=== PATIENT | male | born 1945 | race Caucasian/White ===

== ENCOUNTER 2018-04-29 14:42 | Inpatient (IN) | payer BC ==
[~2018-04-29] VITALS: Ht 182.9 cm; Wt 106.6 kg
--- NOTE | 2018-04-29 16:00 | RAD ---
EXAM: Chest, single view. HISTORY: Weakness. COMPARISON: None. FINDINGS: A frontal view the chest is obtained. There is no infiltrate, pleural effusion or pneumothorax. The heart is normal in size. There has been an incidental distal left clavicular resection. IMPRESSION: No acute pulmonary finding. Electronically signed by: Courtney Burt MD (04/29/2018 3:57 PM) [facility]
[2018-04-29 16:19] LABS: BASO % 1 % (0-3); EOS # 0.1 x10^3/uL (0.0-0.7); EOS % 1 % (0-3); HEMATOCRIT 40.8 % (39.0-53.0); HEMOGLOBIN 14.2 g/dL (13.0-17.5); LYMPH # 1.4 x10^3/uL (1.0-4.8); LYMPH % 23 % (24-48); MEAN CORPUSCULAR HEMOGLOBIN 31 pg (25-35); MEAN CORPUSCULAR HGB CONC 35 g/dL (31-37); MEAN CORPUSCULAR VOLUME 90 fL (79-100); MONO # 0.5 x10^3/uL (0.0-1.1); MONO % 8 % (0-9); NEUT # 4.1 x10^3uL (1.8-7.7); NEUT % 68 % (31-73); PLATELET COUNT 159 x10^3/uL (140-400); RED BLOOD COUNT 4.53 x10^6/uL (4.30-5.70); RED CELL DISTRIBUTION WIDTH 13.6 % (11.5-14.5); WHITE BLOOD COUNT 6.1 x10^3/uL (4.0-11.0)
[2018-04-29 16:29] LABS: CALCIUM 9.9 mg/dL (8.5-10.1); CREATININE 1.1 mg/dL (0.7-1.3); GFR 65.6; POTASSIUM 3.4 mmol/L (3.5-5.1)
[2018-04-29 16:34] LABS: ALBUMIN 3.9 g/dL (3.4-5.0); ALBUMIN/GLOBULIN RATIO 1.1 (1.0-1.7); TOTAL BILIRUBIN 0.4 mg/dL (0.2-1.0); TOTAL PROTEIN 7.4 g/dL (6.4-8.2)
--- NOTE | 2018-04-29 16:54 | PHYS DOC ---
Past Medical History Past Medical History: Arthritis, Diabetes-Type II, Hypertension, Other Additional Past Medical Histor: bph,neuropathy,back surgery,no control of right foot,neck injury Past Surgical History: Other Additional Past Surgical Histo: back,right tib/fib, testicular surgery for nonca tumor,tonsils Alcohol Use: Rarely Drug Use: None Adult General Chief Complaint Chief Complaint: DIZZY/LIGHT HEADED HPI HPI Patient is a 72 year old male who presents with dizziness and near syncope that happened approximately 11:00 this morning. The patient states that he felt like it came on suddenly. He checked his blood sugars approximately 1:00 this afternoon and they were running in the 140's. He has recently started a ketosis diet. He denies chest pain or shortness of air. He denies nausea, diarrhea or vomiting. He denies any history of coronary disease or intervention. He states that he does have hypertension and does have an annual stress test. Review of Systems Review of Systems Constitutional: Denies fever or chills [] Eyes: Denies change in visual acuity, redness, or eye pain [] HENT: Denies nasal congestion or sore throat [] Respiratory: Denies cough or shortness of breath [] Cardiovascular: No additional information not addressed in HPI [] GI: Denies abdominal pain, nausea, vomiting, bloody stools or diarrhea [] : Denies dysuria or hematuria [] Musculoskeletal: Denies back pain or joint pain [] Integument: Denies rash or skin lesions [] Neurologic: See history of present illness Endocrine: Denies polyuria or polydipsia [] All other systems were reviewed and found to be within normal limits, except as documented in this note. Allergies Allergies Allergies Coded Allergies Type Severity Reaction Last Updated Verified nitrofurazone Allergy Severe anaphalyxis 04/29/18 Yes Physical Exam Physical Exam Constitutional: Well developed, well nourished, no acute distress, non-toxic appearance. [] HENT: Normocephalic, atraumatic, bilateral external ears normal, oropharynx moist, no oral exudates, nose normal. [] Eyes: PERRLA, EOMI, conjunctiva normal, no discharge. [] Neck: Normal range of motion, no tenderness, supple, no stridor. [] Cardiovascular:Heart rate irregular rhythm, no murmur [] Lungs & Thorax: Bilateral breath sounds clear to auscultation [] Abdomen: Bowel sounds normal, soft, no tenderness, no masses, no pulsatile masses. [] Skin: Warm, dry, no erythema, no rash. [] Back: No tenderness, no CVA tenderness. [] Extremities: No tenderness, no cyanosis, no clubbing, ROM intact, no edema. [] Neurologic: Alert and oriented X 3, normal motor function, normal sensory function, no focal deficits noted. [] Psychologic: Affect normal, judgement normal, mood normal. [] Current Patient Data Vital Signs Vital Signs Date Time Temp Pulse Resp B/P (MAP) Pulse Ox O2 Delivery O2 Flow Rate FiO2 04/29/18 16:53 90 18 96 04/29/18 15:30 98.1 131/70 (90) Room Air 98.1 Lab Values Laboratory Tests Test 04/29/18 16:00 White Blood Count 6.1 x10^3/uL (4.0-11.0) Red Blood Count 4.53 x10^6/uL (4.30-5.70) Hemoglobin 14.2 g/dL (13.0-17.5) Hematocrit 40.8 % (39.0-53.0) Mean Corpuscular Volume 90 fL (79-100) Mean Corpuscular Hemoglobin 31 pg (25-35) Mean Corpuscular Hemoglobin Concent 35 g/dL (31-37) Red Cell Distribution Width 13.6 % (11.5-14.5) Platelet Count 159 x10^3/uL (140-400) Neutrophils (%) (Auto) 68 % (31-73) Lymphocytes (%) (Auto) 23 % (24-48) L Monocytes (%) (Auto) 8 % (0-9) Eosinophils (%) (Auto) 1 % (0-3) Basophils (%) (Auto) 1 % (0-3) Neutrophils # (Auto) 4.1 x10^3uL (1.8-7.7) Lymphocytes # (Auto) 1.4 x10^3/uL (1.0-4.8) Monocytes # (Auto) 0.5 x10^3/uL (0.0-1.1) Eosinophils # (Auto) 0.1 x10^3/uL (0.0-0.7) Basophils # (Auto) 0.0 x10^3/uL (0.0-0.2) Sodium Level 136 mmol/L (136-145) Potassium Level 3.4 mmol/L (3.5-5.1) L Chloride Level 97 mmol/L (98-107) L Carbon Dioxide Level 26 mmol/L (21-32) Anion Gap 13 (6-14) Blood Urea Nitrogen 24 mg/dL (8-26) Creatinine 1.1 mg/dL (0.7-1.3) Estimated GFR (Cockcroft-Gault) 65.6 BUN/Creatinine Ratio 22 (6-20) H Glucose Level 115 mg/dL (70-99) H Calcium Level 9.9 mg/dL (8.5-10.1) Total Bilirubin 0.4 mg/dL (0.2-1.0) Aspartate Amino Transferase (AST) 17 U/L (15-37) Alanine Aminotransferase (ALT) 37 U/L (16-63) Alkaline Phosphatase 59 U/L (46-116) Total Protein 7.4 g/dL (6.4-8.2) Albumin 3.9 g/dL (3.4-5.0) Albumin/Globulin Ratio 1.1 (1.0-1.7) Laboratory Tests 04/29/18 16:00 Laboratory Tests 04/29/18 16:00 EKG EKG []The patient's EKG shows an irregular rhythm with no P waves. the patient is currently in A. fib with a heart rate of 88 bpm. Radiology/Procedures Radiology/Procedures []PATIENT: HERIBERTO MCCANN IACCOUNT: [id number]#: [id number] : 1945 LOCATION: ER AGE: 72 SEX: M EXAM STATUS: REG ER ORD. PHYSICIAN: ELEANOR MARQUEZ APRN REASON: dizzy PROCEDURE: CHEST AP ONLY EXAM: Chest, single view. HISTORY: Weakness. COMPARISON: None. FINDINGS: A frontal view the chest is obtained. There is no infiltrate, pleural effusion or pneumothorax. The heart is normal in size. There has been an incidental distal left clavicular resection. IMPRESSION: No acute pulmonary finding. Electronically signed by: Courtney Fournier MD (04/29/2018 3:57 PM) [place] [id number] DICTATED and SIGNED BY: COURTNEY FOURNIER MD DATE: 04/29/18 5663 Course & Med Decision Making Course & Med Decision Making Pertinent Labs and Imaging studies reviewed. (See chart for details) []The patient refused a head CT. The patient also refused urinalysis. The patient states that he has been hospitalized before when hospitals just tried to order inappropriate has to gain money. I explained to him that these were all valid test given his symptoms. He declined them anyway. The patient has agreed to be admitted to Dr. Rodgers's service and to have a cardiology consult for his new diagnosis of A. fib. Dragon Disclaimer Dragon Disclaimer This electronic medical record was generated, in whole or in part, using a voice recognition dictation system. Departure Departure Impression: Primary Impression: A-fib Additional Impression: Near syncope Disposition: ADMITTED INPATIENT Admitting Physician: Venessa Rodgers Condition: GOOD Referrals: NING MCKEON (PCP) Problem Qualifiers ELEANOR MARQUEZ APRN Apr 29, 2018 16:54
--- NOTE | 2018-04-29 19:21 | EKG ---
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
[2018-04-29] MEDS ORDERED: ONDANSETRON PF 4 MG/2 ML VIAL. IV PRN (19:45)
[2018-04-29] MEDS ORDERED: MORPHINE SULFATE 4 MG/ML VIAL. IV PRN (19:45)
[2018-04-29] MEDS ORDERED: TAMS0.4C2 PO (19:46)
[2018-04-29] MEDS ORDERED: ASPI81TA50 PO (19:46)
[2018-04-29] MEDS ORDERED: ALFU10TA3 PO (19:46)
[2018-04-29] MEDS ORDERED: HYDR25TA9 PO (19:46)
[2018-04-29] MEDS ORDERED: PIOG30TA41 PO (19:46)
[2018-04-29] MEDS ORDERED: METF500T16 PO (19:46)
[2018-04-29] MEDS ORDERED: FINA5TAB4 PO (19:46)
[2018-04-29] MEDS ORDERED: ATOR40TA59 PO (19:46)
[2018-04-29 21:01] VITALS: BP 145/95
[2018-04-29] MEDS: IV NORMAL SALINE 1000ML BAG 1,000 ML IV SCH (21:19)
[2018-04-29] MEDS ORDERED: METH-37 PO (21:45)
--- NOTE | 2018-04-29 22:03 | PDOC1 ---
History and Physical Date of Admission Date of Admission DATE: 04/29/18 TIME: 21:59 Source Source: Chart review, Patient History of Present Illness History of Present Illness Mr. Smith is a 72 year old male admit from ER with new dizziness and near syncope, this AM in the ER, he reports feeling better, and repeatly wants to talk about prior medical bills and what this may cos.t He has recently started a ketosis diet. 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 [employer], he reports from prior cardiac workup in 2016 there that was negative he reports he didn't want to come to the ER, but was forced to by his lady friend Past Medical History Cardiovascular: HTN Heme/Onc: No pertinent hx Hepatobiliary: No pertinent hx Infectious disease: No pertinent hx Renal/: No pertinent hx Endocrine: Diabetes Social History Smoke: No ALCOHOL: rare Drugs: None Current Problem List Problem List Problems Medical Problems: (1) A-fib Status: Acute (2) Near syncope Status: Acute Current Medications Current Medications Current Medications Ondansetron HCl (Zofran) 4 mg PRN Q8HRS PRN IV NAUSEA/VOMITING; Start 04/29/18 at 19:45; Stop 04/30/18 at 19:44 Morphine Sulfate (Morphine Sulfate) 4 mg PRN Q2HR PRN IV PAIN; Start 04/29/18 at 19:45; Stop 04/30/18 at 19:44 Sodium Chloride 1,000 ml @ 125 mls/hr Q8H IV Last administered on 04/29/18at 21 :19; Start 04/29/18 at 19:34; Stop 04/30/18 at 19:33 Metformin HCl (Glucophage) 500 mg BIDWMEALS PO ; Start 04/29/18 at 22:00 Active Scripts Active Reported Robaxin (Methocarbamol) 500 Mg Tablet Unknown Dose PO Tamsulosin Hcl 0.4 Mg Cap.er.24h 1 Cap PO DAILY Aspir-Low (Aspirin) 81 Mg Tablet.dr 1 Tab PO DAILY Hydrochlorothiazide Tablet (Hydrochlorothiazide) 25 Mg Tablet 1 Tab PO DAILY Alfuzosin Hcl 10 Mg Tab.er.24h 1 Tab PO DAILY Atorvastatin Calcium 40 Mg Tablet 40 Mg PO HS Finasteride 5 Mg Tablet 1 Tab PO DAILY Actos (Pioglitazone Hcl) 30 Mg Tablet 1 Tab PO DAILY Metformin Hcl 500 Mg Tablet 500 Mg PO BID Allergies Allergies: Coded Allergies: nitrofurazone (Verified Allergy, Severe, anaphalyxis, 04/29/18) ROS General: No: Chills, Night Sweats, Fatigue, Malaise, Appetite, Other PSYCHOLOGICAL ROS: No: Anxiety, Behavioral Disorder, Concentration difficultie , Decreased libido, Depression, Disorientation, Hallucinations, Hostility, Irritablity, Memory difficulties, Mood Swings, Obsessive thoughts, Physical abuse, Sexual abuse, Sleep disturbances, Suicidal ideation, Other Eyes: No Blurry vision, No Decreased vision, No Double vision, No Dry eyes, No Excessive tearing, No Eye Pain, No Itchy Eyes, No Loss of vision, No Photophobia , No Scotomata, No Uses contacts, No Uses glasses, No Other HEENT: No: Heacaches, Visual Changes, Hearing change, Nasal congestion, Nasal discharge, Oral lesions, Sinus pain, Sore Throat, Epistaxis, Sneezing, Snoring, Tinnitus, Vertigo, Vocal changes, Other Respiratory: No: Cough, Hemoptysis, Orthopnea, Pleuritic Pain, Shortness of breath, SOB with excertion, Sputum Changes, Stridor, Tachypnea, Wheezing, Other Cardiovascular: No Chest Pain, No Palpitations, No Orthopnea, No Paroxysmal Noc. Dyspnea, No Edema, No Lt Headedness, No Other Gastrointestinal: No Nausea, No Vomiting, No Abdominal Pain, No Diarrhea, No Constipation, No Melena, No Hematochezia, No Other Genitourinary: No Dysuria, No Frequency, No Incontinence, No Hematuria, No Retention, No Discharge, No Urgency, No Pain, No Flank Pain, No Other, No , No , No , No , No , No , No Musculoskeletal: Yes Gait Disturbance, Yes Joint Pain, Yes Joint Stiffness, Yes Pain In:; No Joint Swelling, No Muscle Pain, No Muscular Weakness, No Swelling In:, No Other Neurological: Yes Gait Disturbance, Yes Numbness/Tingling (right knee down from prior back injury); No Behavorial Changes, No Bowel/Bladder ControlChng, No Confusion, No Dizziness, No Headaches, No Impaired Coord/balance, No Memory Loss, No Seizures , No Speech Problems, No Tremors, No Visual Changes, No Weakness, No Other Skin: No Dry Skin, No Eczema, No Hair Changes, No Lumps, No Mole Changes, No Mottling, No Nail Changes, No Pruritus, No Rash, No Skin Lesion Changes, No Other, No Acne Physical Exam General: Alert, Oriented X3, Cooperative, No acute distress HEENT: Atraumatic, PERRLA, EOMI Lungs: Clear to auscultation Heart: S1S2 Abdomen: Normal bowel sounds, Soft Extremities: No cyanosis, No edema Skin: No rashes, No significant lesion Neuro: Normal speech Psych/Mental Status: Mental status NL, Mood NL Vitals Vitals Vital Signs Date Time Temp Pulse Resp B/P (MAP) Pulse Ox O2 Delivery O2 Flow Rate FiO2 04/29/18 16:53 90 18 96 04/29/18 15:30 98.1 131/70 (90) Room Air 98.1 Labs Labs Laboratory Tests Test 04/29/18 16:00 White Blood Count 6.1 x10^3/uL (4.0-11.0) Red Blood Count 4.53 x10^6/uL (4.30-5.70) Hemoglobin 14.2 g/dL (13.0-17.5) Hematocrit 40.8 % (39.0-53.0) Mean Corpuscular Volume 90 fL (79-100) Mean Corpuscular Hemoglobin 31 pg (25-35) Mean Corpuscular Hemoglobin Concent 35 g/dL (31-37) Red Cell Distribution Width 13.6 % (11.5-14.5) Platelet Count 159 x10^3/uL (140-400) Neutrophils (%) (Auto) 68 % (31-73) Lymphocytes (%) (Auto) 23 % (24-48) Monocytes (%) (Auto) 8 % (0-9) Eosinophils (%) (Auto) 1 % (0-3) Basophils (%) (Auto) 1 % (0-3) Neutrophils # (Auto) 4.1 x10^3uL (1.8-7.7) Lymphocytes # (Auto) 1.4 x10^3/uL (1.0-4.8) Monocytes # (Auto) 0.5 x10^3/uL (0.0-1.1) Eosinophils # (Auto) 0.1 x10^3/uL (0.0-0.7) Basophils # (Auto) 0.0 x10^3/uL (0.0-0.2) Sodium Level 136 mmol/L (136-145) Potassium Level 3.4 mmol/L (3.5-5.1) Chloride Level 97 mmol/L (98-107) Carbon Dioxide Level 26 mmol/L (21-32) Anion Gap 13 (6-14) Blood Urea Nitrogen 24 mg/dL (8-26) Creatinine 1.1 mg/dL (0.7-1.3) Estimated GFR (Cockcroft-Gault) 65.6 BUN/Creatinine Ratio 22 (6-20) Glucose Level 115 mg/dL (70-99) Calcium Level 9.9 mg/dL (8.5-10.1) Total Bilirubin 0.4 mg/dL (0.2-1.0) Aspartate Amino Transf (AST/SGOT) 17 U/L (15-37) Alanine Aminotransferase (ALT/SGPT) 37 U/L (16-63) Alkaline Phosphatase 59 U/L (46-116) Total Protein 7.4 g/dL (6.4-8.2) Albumin 3.9 g/dL (3.4-5.0) Albumin/Globulin Ratio 1.1 (1.0-1.7) Laboratory Tests Test 04/29/18 16:00 White Blood Count 6.1 x10^3/uL (4.0-11.0) Red Blood Count 4.53 x10^6/uL (4.30-5.70) Hemoglobin 14.2 g/dL (13.0-17.5) Hematocrit 40.8 % (39.0-53.0) Mean Corpuscular Volume 90 fL (79-100) Mean Corpuscular Hemoglobin 31 pg (25-35) Mean Corpuscular Hemoglobin Concent 35 g/dL (31-37) Red Cell Distribution Width 13.6 % (11.5-14.5) Platelet Count 159 x10^3/uL (140-400) Neutrophils (%) (Auto) 68 % (31-73) Lymphocytes (%) (Auto) 23 % (24-48) Monocytes (%) (Auto) 8 % (0-9) Eosinophils (%) (Auto) 1 % (0-3) Basophils (%) (Auto) 1 % (0-3) Neutrophils # (Auto) 4.1 x10^3uL (1.8-7.7) Lymphocytes # (Auto) 1.4 x10^3/uL (1.0-4.8) Monocytes # (Auto) 0.5 x10^3/uL (0.0-1.1) Eosinophils # (Auto) 0.1 x10^3/uL (0.0-0.7) Basophils # (Auto) 0.0 x10^3/uL (0.0-0.2) Sodium Level 136 mmol/L (136-145) Potassium Level 3.4 mmol/L (3.5-5.1) Chloride Level 97 mmol/L (98-107) Carbon Dioxide Level 26 mmol/L (21-32) Anion Gap 13 (6-14) Blood Urea Nitrogen 24 mg/dL (8-26) Creatinine 1.1 mg/dL (0.7-1.3) Estimated GFR (Cockcroft-Gault) 65.6 BUN/Creatinine Ratio 22 (6-20) Glucose Level 115 mg/dL (70-99) Calcium Level 9.9 mg/dL (8.5-10.1) Total Bilirubin 0.4 mg/dL (0.2-1.0) Aspartate Amino Transf (AST/SGOT) 17 U/L (15-37) Alanine Aminotransferase (ALT/SGPT) 37 U/L (16-63) Alkaline Phosphatase 59 U/L (46-116) Total Protein 7.4 g/dL (6.4-8.2) Albumin 3.9 g/dL (3.4-5.0) Albumin/Globulin Ratio 1.1 (1.0-1.7) VTE Prophylaxis Ordered VTE Prophylaxis Devices: No VTE Pharmacological Prophylaxi: Yes Assessment/Plan Assessment/Plan near syncope afib, new acute diastolic CHF transient RVR obesity, BMI 32 Dm2, metformin CARMEN AMADOR MD Apr 29, 2018 22:03
[2018-04-29] MEDS: metFORMIN 500 MG TABLET PO SCH (22:44)
[2018-04-29 23:26] VITALS: BP 111/74
[2018-04-30 03:18] VITALS: BP 114/70
[2018-04-30] MEDS: IV NORMAL SALINE 1000ML BAG 1,000 ML IV SCH (05:22)
[2018-04-30 06:27] LABS: BASO % 1 % (0-3); EOS # 0.1 x10^3/uL (0.0-0.7); EOS % 2 % (0-3); HEMATOCRIT 38.6 % (39.0-53.0); HEMOGLOBIN 13.1 g/dL (13.0-17.5); LYMPH # 1.6 x10^3/uL (1.0-4.8); LYMPH % 30 % (24-48); MEAN CORPUSCULAR HEMOGLOBIN 31 pg (25-35); MEAN CORPUSCULAR HGB CONC 34 g/dL (31-37); MEAN CORPUSCULAR VOLUME 91 fL (79-100); MONO # 0.6 x10^3/uL (0.0-1.1); MONO % 10 % (0-9); NEUT # 3.2 x10^3uL (1.8-7.7); NEUT % 58 % (31-73); PLATELET COUNT 146 x10^3/uL (140-400); RED BLOOD COUNT 4.23 x10^6/uL (4.30-5.70); RED CELL DISTRIBUTION WIDTH 13.4 % (11.5-14.5); WHITE BLOOD COUNT 5.5 x10^3/uL (4.0-11.0)
[2018-04-30 06:31] LABS: CALCIUM 9.1 mg/dL (8.5-10.1); GFR 73.2; POTASSIUM 3.9 mmol/L (3.5-5.1)
[2018-04-30 07:40] VITALS: BP 108/66
[2018-04-30 08:28] LABS: MAGNESIUM 1.9 mg/dL (1.8-2.4)
[2018-04-30 08:35] LABS: CHOLESTEROL/HDL RATIO 3.8
[2018-04-30] MEDS: metFORMIN 500 MG TABLET PO SCH (08:40)
[2018-04-30] MEDS ORDERED: METOPROLOL TART IMMED RELEASE 25 MG TABLET. PO ONE ×2 (09:45→10:30)
[2018-04-30] MEDS: APIXABAN 5 MG TABLET. PO SCH ×2 (09:57→18:04)
[2018-04-30] MEDS ORDERED: TAMSULOSIN 0.4 MG CAP.ER.24H. PO SCH (10:00)
[2018-04-30] MEDS ORDERED: ASPIRIN ENTERIC COATED 81 MG TABLET.DR. PO SCH (10:00)
[2018-04-30] MEDS ORDERED: FINASTERIDE 5 MG TABLET. PO SCH (10:00)
[2018-04-30] MEDS ORDERED: hydroCHLOROthiazide 25 MG TABLET PO SCH (10:00)
--- NOTE | 2018-04-30 10:01 | PDOC2 ---
NHAN [facility] MANAGER [facility]OGY 04/30/18 1001: CARDIAC CONSULT DATE OF CONSULT Date of Consult DATE: 04/30/18 TIME: 09:14 REASON FOR CONSULT Reason for Consult: AFIB REFERRING PHYSICIAN Referring Physician: Pushpa SOURCE Source: Chart review, Patient HISTORY OF PRESENT ILLNESS HISTORY OF PRESENT ILLNESS This is a pleasant 72 yo male admitted for complains of lightheadedness. Reports that he was noted with irregular rhythm over a yr ago but not told of any afib. He had stress test in 10/2016 because of the latter and he was told that he is ok. He has been having brief dizzy spells in the last 1-2 weeks and thought that its just because of positional changes. Last weekend this became frequent. Then Yesterday he was waiting at the parking lot for his girlfriend, he got out of the car and stood up and felt lightheaded and diaphoretic. He then sat down and drank some water. He then went to his girlfriends's house use the computer then stood up and his symptoms restarted and was worse. He almost passed out, having blurred vision, curtain coming down, diaphoretic and SOA and nausea. Denies any sensation of palpitations, chest pain. Denies any recent injury, falls, syncope, bleeding, CAD, VTE, CVA. No recent infection, fever or chills and reports being adequately hydrated. He does however drinks significant amount of caffeinated beverages ranging from tea, coffee, to soda. 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 Endocrine: Diabetes (2) Dermatology: No pertinent hx PAST SURGICAL HISTORY Past Surgical History: Tonsillectomy, Other (left leg repair from trauma; testicular lumpectomy) FAMILY HISTORY Family History noncontributory SOCIAL HISTORY Smoke: No ALCOHOL: occassional Drugs: None Lives: Alone CURRENT MEDICATIONS CURRENT MEDICATIONS Current Medications Medications (Trade) Dose Ordered Sig/Arun Route PRN Reason Start Time Stop Time Status Last Admin Dose Admin Sodium Chloride 1,000 ml @ 125 mls/hr Q8H IV 04/29/18 19:34 04/30/18 19:33 04/30/18 05:22 Metformin HCl (Glucophage) 500 mg BIDWMEALS PO 04/29/18 22:00 04/30/18 08:40 ALLERGIES ALLERGIES: Coded Allergies: nitrofurazone (Verified Allergy, Severe, anaphalyxis, 04/29/18) ROS Review of System 14 point ROS evaluated with pertinent positives noted per HPI PHYSICAL EXAM General: Alert, Oriented X3, Cooperative, No acute distress HEENT: Atraumatic, Mucous membr. moist/pink Lungs: Clear to auscultation, Normal air movement Heart: Other (AFIB) Abdomen: Soft, No tenderness Extremities: No cyanosis, No edema Skin: No breakdown, No significant lesion Neuro: Normal speech, Sensation intact Psych/Mental Status: Mental status NL, Mood NL MUSCULOSKELETAL: Osteoarthritic changes both hands VITALS VITALS Vital Signs Date Time Temp Pulse Resp B/P (MAP) Pulse Ox O2 Delivery O2 Flow Rate FiO2 04/30/18 07:40 97.7 73 18 108/66 (80) 96 Room Air 97.7 LABS Lab: Laboratory Tests Test 04/29/18 16:00 04/30/18 05:35 White Blood Count 6.1 x10^3/uL (4.0-11.0) 5.5 x10^3/uL (4.0-11.0) Red Blood Count 4.53 x10^6/uL (4.30-5.70) 4.23 x10^6/uL (4.30-5.70) Hemoglobin 14.2 g/dL (13.0-17.5) 13.1 g/dL (13.0-17.5) Hematocrit 40.8 % (39.0-53.0) 38.6 % (39.0-53.0) Mean Corpuscular Volume 90 fL (79-100) 91 fL (79-100) Mean Corpuscular Hemoglobin 31 pg (25-35) 31 pg (25-35) Mean Corpuscular Hemoglobin Concent 35 g/dL (31-37) 34 g/dL (31-37) Red Cell Distribution Width 13.6 % (11.5-14.5) 13.4 % (11.5-14.5) Platelet Count 159 x10^3/uL (140-400) 146 x10^3/uL (140-400) Neutrophils (%) (Auto) 68 % (31-73) 58 % (31-73) Lymphocytes (%) (Auto) 23 % (24-48) 30 % (24-48) Monocytes (%) (Auto) 8 % (0-9) 10 % (0-9) Eosinophils (%) (Auto) 1 % (0-3) 2 % (0-3) Basophils (%) (Auto) 1 % (0-3) 1 % (0-3) Neutrophils # (Auto) 4.1 x10^3uL (1.8-7.7) 3.2 x10^3uL (1.8-7.7) Lymphocytes # (Auto) 1.4 x10^3/uL (1.0-4.8) 1.6 x10^3/uL (1.0-4.8) Monocytes # (Auto) 0.5 x10^3/uL (0.0-1.1) 0.6 x10^3/uL (0.0-1.1) Eosinophils # (Auto) 0.1 x10^3/uL (0.0-0.7) 0.1 x10^3/uL (0.0-0.7) Basophils # (Auto) 0.0 x10^3/uL (0.0-0.2) 0.0 x10^3/uL (0.0-0.2) Sodium Level 136 mmol/L (136-145) 139 mmol/L (136-145) Potassium Level 3.4 mmol/L (3.5-5.1) 3.9 mmol/L (3.5-5.1) Chloride Level 97 mmol/L (98-107) 101 mmol/L (98-107) Carbon Dioxide Level 26 mmol/L (21-32) 30 mmol/L (21-32) Anion Gap 13 (6-14) 8 (6-14) Blood Urea Nitrogen 24 mg/dL (8-26) 19 mg/dL (8-26) Creatinine 1.1 mg/dL (0.7-1.3) 1.0 mg/dL (0.7-1.3) Estimated GFR (Cockcroft-Gault) 65.6 73.2 BUN/Creatinine Ratio 22 (6-20) Glucose Level 115 mg/dL (70-99) 116 mg/dL (70-99) Calcium Level 9.9 mg/dL (8.5-10.1) 9.1 mg/dL (8.5-10.1) Total Bilirubin 0.4 mg/dL (0.2-1.0) Aspartate Amino Transf (AST/SGOT) 17 U/L (15-37) Alanine Aminotransferase (ALT/SGPT) 37 U/L (16-63) Alkaline Phosphatase 59 U/L (46-116) Total Protein 7.4 g/dL (6.4-8.2) Albumin 3.9 g/dL (3.4-5.0) Albumin/Globulin Ratio 1.1 (1.0-1.7) Magnesium Level 1.9 mg/dL (1.8-2.4) Triglycerides Level 157 mg/dL (0-150) Cholesterol Level 149 mg/dL (0-200) LDL Cholesterol, Calculated 79 mg/dL (0-100) VLDL Cholesterol, Calculated 31 mg/dL (0-40) Non-HDL Cholesterol Calculated 110 mg/dL (0-129) HDL Cholesterol 39 mg/dL (40-60) Cholesterol/HDL Ratio 3.8 Thyroid Stimulating Hormone (TSH) 1.429 uIU/mL (0.358-3.74) ASSESSMENT/PLAN ASSESSMENT/PLAN 1. AFIB RVR: likely been paroxysmal for a while based on details. HR still fluctuating from 90-100 2. Presyncope: due to above. 3. HTN: controlled 4. DM2/HLP: continue metformin and statin Recommendations 1. TTE. 2. Start on eliquis for stroke prevention, benefits outweigh the risk, agreeable to proceed. 3. DC home HCTZ to accommodate addition of metoprolol. If pt converts to SR then will plan for MCOT. 4. Discussed decreased caffeinated beverages. 5. Discussed potential cardioversion as an outpt after 3-4 weeks of anticoagulation 6. Potential DC this evening if TTE shows no acute changes and rate is consistently controlled CAROLINA GUZMÁN MD 04/30/18 2731: CARDIAC CONSULT ASSESSMENT/PLAN ASSESSMENT/PLAN Patient seen and examined. Agree with SHIRT SEWER's assessment and plan. Patient presented back in sinus rhythm Continue metoprolol and eliquis 2-D echo showed normal LV systolic function Time for outpatient event monitor to further evaluate patient's near-syncope and atrial fibrillation burden Thank you for your consultation NHAN VEGA APRN Apr 30, 2018 10:01 CAROLINA GUZMÁN MD Apr 30, 2018 17:15
[2018-04-30] MEDS ORDERED: PIOGLITAZONE 15 MG TABLET. PO SCH (11:00)
[2018-04-30 11:10] VITALS: BP 104/64
[2018-04-30 11:26] LABS: BILIRUBIN,URINE NEGATIVE (NEG); CLARITY,URINE CLEAR; COLOR,URINE YELLOW; NITRITE,URINE NEGATIVE (NEG); PROTEIN,URINE NEGATIVE (NEG-TRACE)
[2018-04-30 11:45] LABS: SQUAMOUS EPITHELIAL CELL,UR FEW /LPF
[2018-04-30 11:46] LABS: BACTERIA,URINE 0 /HPF (0-FEW); RBC,URINE 0 /HPF (0-2); WBC,URINE OCC /HPF (0-4)
--- NOTE | 2018-04-30 13:43 | PDOC ---
PROGRESS NOTES Chief Complaint Chief Complaint 1. AFIB RVR: with mild acute diastolic CHF 2. Presyncope 3. HTN 4. DM2 w. obesity, BMI 32 History of Present Illness History of Present Illness echo today eliquis started, CV team discussed CV team Discussed potential cardioversion as an outpt after 3-4 weeks of anticoagulation will try to DC Vitals Vitals Vital Signs Date Time Temp Pulse Resp B/P (MAP) Pulse Ox O2 Delivery O2 Flow Rate FiO2 04/30/18 11:10 97.8 91 17 104/64 (77) 95 Room Air 97.8 Physical Exam General: Alert, Oriented X3, Cooperative, No acute distress Heart: Other (AFIB) Abdomen: Soft, No tenderness Extremities: No cyanosis, No edema Skin: No breakdown, No significant lesion Labs LABS Laboratory Tests Test 04/29/18 16:00 04/30/18 05:35 04/30/18 11:05 White Blood Count 6.1 x10^3/uL (4.0-11.0) 5.5 x10^3/uL (4.0-11.0) Red Blood Count 4.53 x10^6/uL (4.30-5.70) 4.23 x10^6/uL (4.30-5.70) Hemoglobin 14.2 g/dL (13.0-17.5) 13.1 g/dL (13.0-17.5) Hematocrit 40.8 % (39.0-53.0) 38.6 % (39.0-53.0) Mean Corpuscular Volume 90 fL (79-100) 91 fL (79-100) Mean Corpuscular Hemoglobin 31 pg (25-35) 31 pg (25-35) Mean Corpuscular Hemoglobin Concent 35 g/dL (31-37) 34 g/dL (31-37) Red Cell Distribution Width 13.6 % (11.5-14.5) 13.4 % (11.5-14.5) Platelet Count 159 x10^3/uL (140-400) 146 x10^3/uL (140-400) Neutrophils (%) (Auto) 68 % (31-73) 58 % (31-73) Lymphocytes (%) (Auto) 23 % (24-48) 30 % (24-48) Monocytes (%) (Auto) 8 % (0-9) 10 % (0-9) Eosinophils (%) (Auto) 1 % (0-3) 2 % (0-3) Basophils (%) (Auto) 1 % (0-3) 1 % (0-3) Neutrophils # (Auto) 4.1 x10^3uL (1.8-7.7) 3.2 x10^3uL (1.8-7.7) Lymphocytes # (Auto) 1.4 x10^3/uL (1.0-4.8) 1.6 x10^3/uL (1.0-4.8) Monocytes # (Auto) 0.5 x10^3/uL (0.0-1.1) 0.6 x10^3/uL (0.0-1.1) Eosinophils # (Auto) 0.1 x10^3/uL (0.0-0.7) 0.1 x10^3/uL (0.0-0.7) Basophils # (Auto) 0.0 x10^3/uL (0.0-0.2) 0.0 x10^3/uL (0.0-0.2) Sodium Level 136 mmol/L (136-145) 139 mmol/L (136-145) Potassium Level 3.4 mmol/L (3.5-5.1) 3.9 mmol/L (3.5-5.1) Chloride Level 97 mmol/L (98-107) 101 mmol/L (98-107) Carbon Dioxide Level 26 mmol/L (21-32) 30 mmol/L (21-32) Anion Gap 13 (6-14) 8 (6-14) Blood Urea Nitrogen 24 mg/dL (8-26) 19 mg/dL (8-26) Creatinine 1.1 mg/dL (0.7-1.3) 1.0 mg/dL (0.7-1.3) Estimated GFR (Cockcroft-Gault) 65.6 73.2 BUN/Creatinine Ratio 22 (6-20) Glucose Level 115 mg/dL (70-99) 116 mg/dL (70-99) Calcium Level 9.9 mg/dL (8.5-10.1) 9.1 mg/dL (8.5-10.1) Total Bilirubin 0.4 mg/dL (0.2-1.0) Aspartate Amino Transf (AST/SGOT) 17 U/L (15-37) Alanine Aminotransferase (ALT/SGPT) 37 U/L (16-63) Alkaline Phosphatase 59 U/L (46-116) Total Protein 7.4 g/dL (6.4-8.2) Albumin 3.9 g/dL (3.4-5.0) Albumin/Globulin Ratio 1.1 (1.0-1.7) Magnesium Level 1.9 mg/dL (1.8-2.4) Triglycerides Level 157 mg/dL (0-150) Cholesterol Level 149 mg/dL (0-200) LDL Cholesterol, Calculated 79 mg/dL (0-100) VLDL Cholesterol, Calculated 31 mg/dL (0-40) Non-HDL Cholesterol Calculated 110 mg/dL (0-129) HDL Cholesterol 39 mg/dL (40-60) Cholesterol/HDL Ratio 3.8 Thyroid Stimulating Hormone (TSH) 1.429 uIU/mL (0.358-3.74) Urine Collection Type Unknown Urine Color Yellow Urine Clarity Clear Urine pH 5.0 Urine Specific [place] 1.020 Urine Protein Negative mg/dL (NEG-TRACE) Urine Glucose (UA) Negative mg/dL (NEG) Urine Ketones (Stick) Trace mg/dL (NEG) Urine Blood Negative (NEG) Urine Nitrite Negative (NEG) Urine Bilirubin Negative (NEG) Urine Urobilinogen Dipstick 1.0 mg/dL (0.2 mg/dL) Urine Leukocyte Esterase Negative (NEG) Urine RBC 0 /HPF (0-2) Urine WBC Occ /HPF (0-4) Urine Squamous Epithelial Cells Few /LPF Urine Bacteria 0 /HPF (0-FEW) Urine Mucus Slight /LPF Assessment and Plan Assessmemt and Plan Problems Medical Problems: (1) A-fib Status: Acute (2) Near syncope Status: Acute Comment Review of Relevant I have reviewed the following items adair (where applicable) has been applied. Labs Laboratory Tests Test 04/29/18 16:00 04/30/18 05:35 04/30/18 11:05 White Blood Count 6.1 x10^3/uL (4.0-11.0) 5.5 x10^3/uL (4.0-11.0) Red Blood Count 4.53 x10^6/uL (4.30-5.70) 4.23 x10^6/uL (4.30-5.70) Hemoglobin 14.2 g/dL (13.0-17.5) 13.1 g/dL (13.0-17.5) Hematocrit 40.8 % (39.0-53.0) 38.6 % (39.0-53.0) Mean Corpuscular Volume 90 fL (79-100) 91 fL (79-100) Mean Corpuscular Hemoglobin 31 pg (25-35) 31 pg (25-35) Mean Corpuscular Hemoglobin Concent 35 g/dL (31-37) 34 g/dL (31-37) Red Cell Distribution Width 13.6 % (11.5-14.5) 13.4 % (11.5-14.5) Platelet Count 159 x10^3/uL (140-400) 146 x10^3/uL (140-400) Neutrophils (%) (Auto) 68 % (31-73) 58 % (31-73) Lymphocytes (%) (Auto) 23 % (24-48) 30 % (24-48) Monocytes (%) (Auto) 8 % (0-9) 10 % (0-9) Eosinophils (%) (Auto) 1 % (0-3) 2 % (0-3) Basophils (%) (Auto) 1 % (0-3) 1 % (0-3) Neutrophils # (Auto) 4.1 x10^3uL (1.8-7.7) 3.2 x10^3uL (1.8-7.7) Lymphocytes # (Auto) 1.4 x10^3/uL (1.0-4.8) 1.6 x10^3/uL (1.0-4.8) Monocytes # (Auto) 0.5 x10^3/uL (0.0-1.1) 0.6 x10^3/uL (0.0-1.1) Eosinophils # (Auto) 0.1 x10^3/uL (0.0-0.7) 0.1 x10^3/uL (0.0-0.7) Basophils # (Auto) 0.0 x10^3/uL (0.0-0.2) 0.0 x10^3/uL (0.0-0.2) Sodium Level 136 mmol/L (136-145) 139 mmol/L (136-145) Potassium Level 3.4 mmol/L (3.5-5.1) 3.9 mmol/L (3.5-5.1) Chloride Level 97 mmol/L (98-107) 101 mmol/L (98-107) Carbon Dioxide Level 26 mmol/L (21-32) 30 mmol/L (21-32) Anion Gap 13 (6-14) 8 (6-14) Blood Urea Nitrogen 24 mg/dL (8-26) 19 mg/dL (8-26) Creatinine 1.1 mg/dL (0.7-1.3) 1.0 mg/dL (0.7-1.3) Estimated GFR (Cockcroft-Gault) 65.6 73.2 BUN/Creatinine Ratio 22 (6-20) Glucose Level 115 mg/dL (70-99) 116 mg/dL (70-99) Calcium Level 9.9 mg/dL (8.5-10.1) 9.1 mg/dL (8.5-10.1) Total Bilirubin 0.4 mg/dL (0.2-1.0) Aspartate Amino Transf (AST/SGOT) 17 U/L (15-37) Alanine Aminotransferase (ALT/SGPT) 37 U/L (16-63) Alkaline Phosphatase 59 U/L (46-116) Total Protein 7.4 g/dL (6.4-8.2) Albumin 3.9 g/dL (3.4-5.0) Albumin/Globulin Ratio 1.1 (1.0-1.7) Magnesium Level 1.9 mg/dL (1.8-2.4) Triglycerides Level 157 mg/dL (0-150) Cholesterol Level 149 mg/dL (0-200) LDL Cholesterol, Calculated 79 mg/dL (0-100) VLDL Cholesterol, Calculated 31 mg/dL (0-40) Non-HDL Cholesterol Calculated 110 mg/dL (0-129) HDL Cholesterol 39 mg/dL (40-60) Cholesterol/HDL Ratio 3.8 Thyroid Stimulating Hormone (TSH) 1.429 uIU/mL (0.358-3.74) Urine Collection Type Unknown Urine Color Yellow Urine Clarity Clear Urine pH 5.0 Urine Specific [place] 1.020 Urine Protein Negative mg/dL (NEG-TRACE) Urine Glucose (UA) Negative mg/dL (NEG) Urine Ketones (Stick) Trace mg/dL (NEG) Urine Blood Negative (NEG) Urine Nitrite Negative (NEG) Urine Bilirubin Negative (NEG) Urine Urobilinogen Dipstick 1.0 mg/dL (0.2 mg/dL) Urine Leukocyte Esterase Negative (NEG) Urine RBC 0 /HPF (0-2) Urine WBC Occ /HPF (0-4) Urine Squamous Epithelial Cells Few /LPF Urine Bacteria 0 /HPF (0-FEW) Urine Mucus Slight /LPF Laboratory Tests Test 04/29/18 16:00 04/30/18 05:35 04/30/18 11:05 White Blood Count 6.1 x10^3/uL (4.0-11.0) 5.5 x10^3/uL (4.0-11.0) Red Blood Count 4.53 x10^6/uL (4.30-5.70) 4.23 x10^6/uL (4.30-5.70) Hemoglobin 14.2 g/dL (13.0-17.5) 13.1 g/dL (13.0-17.5) Hematocrit 40.8 % (39.0-53.0) 38.6 % (39.0-53.0) Mean Corpuscular Volume 90 fL (79-100) 91 fL (79-100) Mean Corpuscular Hemoglobin 31 pg (25-35) 31 pg (25-35) Mean Corpuscular Hemoglobin Concent 35 g/dL (31-37) 34 g/dL (31-37) Red Cell Distribution Width 13.6 % (11.5-14.5) 13.4 % (11.5-14.5) Platelet Count 159 x10^3/uL (140-400) 146 x10^3/uL (140-400) Neutrophils (%) (Auto) 68 % (31-73) 58 % (31-73) Lymphocytes (%) (Auto) 23 % (24-48) 30 % (24-48) Monocytes (%) (Auto) 8 % (0-9) 10 % (0-9) Eosinophils (%) (Auto) 1 % (0-3) 2 % (0-3) Basophils (%) (Auto) 1 % (0-3) 1 % (0-3) Neutrophils # (Auto) 4.1 x10^3uL (1.8-7.7) 3.2 x10^3uL (1.8-7.7) Lymphocytes # (Auto) 1.4 x10^3/uL (1.0-4.8) 1.6 x10^3/uL (1.0-4.8) Monocytes # (Auto) 0.5 x10^3/uL (0.0-1.1) 0.6 x10^3/uL (0.0-1.1) Eosinophils # (Auto) 0.1 x10^3/uL (0.0-0.7) 0.1 x10^3/uL (0.0-0.7) Basophils # (Auto) 0.0 x10^3/uL (0.0-0.2) 0.0 x10^3/uL (0.0-0.2) Sodium Level 136 mmol/L (136-145) 139 mmol/L (136-145) Potassium Level 3.4 mmol/L (3.5-5.1) 3.9 mmol/L (3.5-5.1) Chloride Level 97 mmol/L (98-107) 101 mmol/L (98-107) Carbon Dioxide Level 26 mmol/L (21-32) 30 mmol/L (21-32) Anion Gap 13 (6-14) 8 (6-14) Blood Urea Nitrogen 24 mg/dL (8-26) 19 mg/dL (8-26) Creatinine 1.1 mg/dL (0.7-1.3) 1.0 mg/dL (0.7-1.3) Estimated GFR (Cockcroft-Gault) 65.6 73.2 BUN/Creatinine Ratio 22 (6-20) Glucose Level 115 mg/dL (70-99) 116 mg/dL (70-99) Calcium Level 9.9 mg/dL (8.5-10.1) 9.1 mg/dL (8.5-10.1) Total Bilirubin 0.4 mg/dL (0.2-1.0) Aspartate Amino Transf (AST/SGOT) 17 U/L (15-37) Alanine Aminotransferase (ALT/SGPT) 37 U/L (16-63) Alkaline Phosphatase 59 U/L (46-116) Total Protein 7.4 g/dL (6.4-8.2) Albumin 3.9 g/dL (3.4-5.0) Albumin/Globulin Ratio 1.1 (1.0-1.7) Magnesium Level 1.9 mg/dL (1.8-2.4) Triglycerides Level 157 mg/dL (0-150) Cholesterol Level 149 mg/dL (0-200) LDL Cholesterol, Calculated 79 mg/dL (0-100) VLDL Cholesterol, Calculated 31 mg/dL (0-40) Non-HDL Cholesterol Calculated 110 mg/dL (0-129) HDL Cholesterol 39 mg/dL (40-60) Cholesterol/HDL Ratio 3.8 Thyroid Stimulating Hormone (TSH) 1.429 uIU/mL (0.358-3.74) Urine Collection Type Unknown Urine Color Yellow Urine Clarity Clear Urine pH 5.0 Urine Specific [place] 1.020 Urine Protein Negative mg/dL (NEG-TRACE) Urine Glucose (UA) Negative mg/dL (NEG) Urine Ketones (Stick) Trace mg/dL (NEG) Urine Blood Negative (NEG) Urine Nitrite Negative (NEG) Urine Bilirubin Negative (NEG) Urine Urobilinogen Dipstick 1.0 mg/dL (0.2 mg/dL) Urine Leukocyte Esterase Negative (NEG) Urine RBC 0 /HPF (0-2) Urine WBC Occ /HPF (0-4) Urine Squamous Epithelial Cells Few /LPF Urine Bacteria 0 /HPF (0-FEW) Urine Mucus Slight /LPF Medications Current Medications Ondansetron HCl (Zofran) 4 mg PRN Q8HRS PRN IV NAUSEA/VOMITING; Start 04/29/18 at 19:45; Stop 04/30/18 at 19:44 Morphine Sulfate (Morphine Sulfate) 4 mg PRN Q2HR PRN IV PAIN; Start 04/29/18 at 19:45; Stop 04/30/18 at 19:44 Sodium Chloride 1,000 ml @ 125 mls/hr Q8H IV Last administered on 04/30/18at 05 :22; Start 04/29/18 at 19:34; Stop 04/30/18 at 19:33 Metformin HCl (Glucophage) 500 mg BIDWMEALS PO Last administered on 04/30/18at 08:40; Start 04/29/18 at 22:00 Apixaban (Eliquis) 5 mg BID PO Last administered on 04/30/18at 09:57; Start at 09:00 Aspirin (Ecotrin) 81 mg DAILY PO Last administered on 04/30/18at 09:58; Start at 10:00 Atorvastatin Calcium (Lipitor) 40 mg HS PO ; Start 04/30/18 at 21:00 Finasteride (Proscar) 5 mg DAILY PO Last administered on 04/30/18at 09:58; Start 04/30/18 at 10:00 Hydrochlorothiazide (Hydrodiuril) 25 mg DAILY PO ; Start 04/30/18 at 10:00; Stop 04/30/18 at 10:00; Status DC Tamsulosin HCl (Flomax) 0.4 mg DAILY PO Last administered on 04/30/18at 09:58; Start 04/30/18 at 10:00 Non-Formulary Medication (Alfuzosin Hcl ) 1 tab DAILY PO ; Start 05/01/18 at 09: 00; Status UNV Metoprolol Tartrate (Lopressor) 25 mg BID PO ; Start 04/30/18 at 21:00; Stop at 21:00; Status DC Metoprolol Tartrate (Lopressor) 25 mg 1X ONCE PO Last administered on at 09:58; Start 04/30/18 at 09:45; Stop 04/30/18 at 09:48; Status DC Metoprolol Tartrate (Lopressor) 50 mg BID PO ; Start 04/30/18 at 21:00 Metoprolol Tartrate (Lopressor) 25 mg 1X ONCE PO Last administered on at 11:03; Start 04/30/18 at 10:30; Stop 04/30/18 at 10:31; Status DC Pioglitazone HCl (Actos) 30 mg DAILY PO Last administered on 04/30/18at 11:02; Start 04/30/18 at 11:00 Active Scripts Active Reported Robaxin (Methocarbamol) 500 Mg Tablet Unknown Dose PO Tamsulosin Hcl 0.4 Mg Cap.er.24h 1 Cap PO DAILY Aspir-Low (Aspirin) 81 Mg Tablet.dr 1 Tab PO DAILY Hydrochlorothiazide Tablet (Hydrochlorothiazide) 25 Mg Tablet 1 Tab PO DAILY Alfuzosin Hcl 10 Mg Tab.er.24h 1 Tab PO DAILY Atorvastatin Calcium 40 Mg Tablet 40 Mg PO HS Finasteride 5 Mg Tablet 1 Tab PO DAILY Actos (Pioglitazone Hcl) 30 Mg Tablet 1 Tab PO DAILY Metformin Hcl 500 Mg Tablet 500 Mg PO BID Vitals/I & O Vital Sign - Last 24 Hours 04/29/18 04/29/18 04/29/18 04/29/18 15:30 15:53 16:23 16:53 Temp 98.1 98.1 Pulse 105 86 92 90 Resp 18 18 B/P (MAP) 131/70 (90) Pulse Ox 97 95 96 96 O2 Delivery Room Air 04/29/18 04/29/18 04/29/18 04/29/18 19:23 19:53 20:23 20:53 Temp 98.9 98.9 Pulse 96 88 84 86 Resp 18 16 18 Pulse Ox 95 96 96 95 04/29/18 04/29/18 04/29/18 04/30/18 21:01 21:30 23:26 03:18 Temp 97.9 97.7 97.8 97.9 97.7 97.8 Pulse 91 81 80 Resp 18 18 18 B/P (MAP) 145/95 (112) 111/74 (86) 114/70 (85) Pulse Ox 97 97 97 O2 Delivery Room Air Room Air Room Air Room Air 04/30/18 04/30/18 04/30/18 04/30/18 07:40 09:58 11:03 11:10 Temp 97.7 97.8 97.7 97.8 Pulse 73 73 85 91 Resp 17 B/P (MAP) 108/66 (80) 108/66 104/64 104/64 (77) Pulse Ox 96 95 O2 Delivery Room Air Room Air Intake and Output 04/29/18 04/29/18 04/30/18 15:00 23:00 07:00 Intake Total 400 ml Balance 400 ml CARMEN AMADOR MD Apr 30, 2018 13:43
[2018-04-30 15:10] VITALS: BP 96/61
--- NOTE | 2018-04-30 15:40 | CARD ---
MR#: [id number] Date of Study: 04/30/2018 Ordering Physician: NHAN VEGA, Referring Physician: CARMEN AMADOR Tech: Donna Lugo RDCS APPROVED REPORT EXAM: Two-dimensional and M-mode echocardiogram with Doppler and color Doppler. Other Information Quality : Fair INDICATION Atrial Fibrillation 2D DIMENSIONS RVDd3.1 (2.9-3.5cm)Left Atrium(2D)4.1 (1.6-4.0cm) IVSd1.0 (0.7-1.1cm)Aortic Root(2D)3.1 (2.0-3.7cm) LVDd4.7 (3.9-5.9cm)LVOT Diameter2.1 (1.8-2.4cm) PWd1.2 (0.7-1.1cm)LVDs2.8 (2.5-4.0cm) FS (%) 30.0 %SV72.2 ml LVEF(%)60.0 (>50%) Aortic Valve AoV Peak Thomas.122.2cm/sAoV VTI22.1cm AO Peak GR.6.0mmHgLVOT Peak Thomas.90.7cm/s LVOT VTI 17.25cmAO Mean GR.4mmHg FRED (VMAX)2.39ld1CLK (VTI)2.73cm2 Mitral Valve MV E Jqwtnndo777.7cm/sMV DECEL TTBU145xn MV BLF94oaFAN (PHT)6.17cm2 TDI E/Medial E'24.9 Tricuspid Valve TR P. Isdpgsop681ft/sRAP [id number] TR Peak Gr.22uoNvMQPZ53qjJb LEFT VENTRICLE The left ventricle is normal size. There is mild concentric left ventricular hypertrophy. The left ve ntricular systolic function is normal. The Ejection Fraction is 55-60%. There is normal LV segmental wall motion. RIGHT VENTRICLE The right ventricle is normal size. The right ventricular systolic function is normal. ATRIA The left atrium is mildly dilated. The right atrium size is normal. The interatrial septum is intact with no evidence for an atrial septal defect or patent foramen ovale as noted on 2-D or Doppler imagi ng. AORTIC VALVE The aortic valve is calcified but opens well. Doppler and Color Flow revealed no significant aortic r egurgitation. There is no significant aortic valvular stenosis. MITRAL VALVE The mitral valve is normal in structure and function. There is no evidence of mitral valve prolapse. There is no mitral valve stenosis. Doppler and Color-flow revealed mild mitral regurgitation. TRICUSPID VALVE The tricuspid valve is normal in structure and function. Doppler and Color Flow revealed mild tricusp id regurgitation. There is moderate-severe pulmonary hypertension. The PA pressure was estimated at 6 0 mmHg. There is no tricuspid valve stenosis. PULMONIC VALVE The pulmonic valve is not well visualized. Doppler and Color Flow revealed trace pulmonic valvular re gurgitation. There is no pulmonic valvular stenosis. GREAT VESSELS The aortic root is normal in size. The ascending aorta is normal in size. The IVC is dilated and bertha apses >50% with inspiration. PERICARDIAL EFFUSION There is no evidence of significant pericardial effusion. Critical Notification Critical Value: No <Conclusion> The left ventricular systolic function is normal. The Ejection Fraction is 55-60%. There is normal LV segmental wall motion. Mild mitral regurgitation. Mild tricuspid regurgitation. There is moderate-severe pulmonary hypertension. The PA pressure was estimated at 60 mmHg. There is no evidence of significant pericardial effusion. Signed by : Mike Carvalho, Electronically Approved : 04/30/2018 15:39:39
--- NOTE | 2018-04-30 16:10 | EKG ---
[facility] [address] [place] [address] Test Date: 2018-04-30 Test Time: 16:04:13 Pat Name: HERIBERTO MCCANN Department: Room: [facility] 1 Gender: M Traffic Agent: RAMILA : 1945 Requested By: NHAN VEGA Order Number: [id number] Reading MD: Mike Carvalho Measurements Intervals [place] Rate: 74 P: [place]: QRS: -62 QRSD: 120 T: 20 QT: 390 QTc: 438 Interpretive Statements SINUS RHYTHM ABNORMAL LEFT AXIS DEVIATION LEFT ANTERIOR FASCICULAR BLOCK Electronically Signed On 05-05-2018 10:25:48 CDT by Mike Carvalho
[2018-04-30] MEDS ORDERED: ANTI-COAG MONITOR BY PHARMACY. MC PRN (16:45)
[2018-04-30] MEDS ORDERED: METOPROLOL TART IMMED RELEASE 25 MG TABLET. PO SCH ×2 (18:00→21:00)
[2018-04-30 18:03] VITALS: BP 96/61
[2018-04-30] MEDS ORDERED: ATORVASTATIN CALCIUM 40 MG TABLET. PO SCH (21:00)
[2018-05-01] MEDS ORDERED: ALFUZOSIN HCL PO SCH (09:00)
== END 2018-04-30 18:15 | disposition home or self-care (01) | DRG 308 ==
LOC: ER 14:42 → 6 SOUTH 17:10
PROVIDERS: ADMIT Internal Medicine; ATTEND Internal Medicine
DX: I48.0 Paroxysmal atrial fibrillation (principal); I50.31 Acute diastolic (congestive) heart failure; I11.0 Hypertensive heart disease with heart failure; E11.42 Type 2 diabetes mellitus with diabetic polyneuropathy; E66.9 Obesity, unspecified; E78.5 Hyperlipidemia, unspecified; N40.0 Benign prostatic hyperplasia without lower urinary tract symptoms; M19.90 Unspecified osteoarthritis, unspecified site; M54.5 Low back pain; M21.371 Foot drop, right foot; Z68.32 Body mass index [BMI] 32.0-32.9, adult; Z87.11 Personal history of peptic ulcer disease; Z88.8 Allergy status to other drugs, medicaments and biological substances; Z79.899 Other long term (current) drug therapy; Z90.49 Acquired absence of other specified parts of digestive tract; Z79.01 Long term (current) use of anticoagulants; Z79.84 Long term (current) use of oral hypoglycemic drugs
CPT/HCPCS: 36415; 71045; 80048; 80053; 80061; 81001; 83735; 84443; 85025; 93005; 93306; J7030; 99285-25

== ENCOUNTER 2018-07-20 07:56 | Observation (INO) | payer BC ==
[~2018-07-20] VITALS: Ht 182.9 cm; Wt 115.7 kg
[~2018-07-20 07:56] MED LIST: ALFU10TA3 PO; ASPI81TA50 PO; ATOR40TA59 PO; FINA5TAB4 PO; HYDR-2145 PO; IV RINGERS,LACTATED 1000ML 1,000 ML IV SCH; METF500T16 PO; METH-37 PO; PIOG30TA41 PO; PROPOFOL 20 ML IV ONE; TAMS0.4C2 PO
[2018-07-20 08:34] VITALS: BP 123/68
[2018-07-20] MEDS ORDERED: FURO40TA4 PO (08:34)
[2018-07-20] MEDS ORDERED: METO50TA6 PO (08:34)
[2018-07-20 08:41] LABS: CALCIUM 9.3 mg/dL (8.5-10.1); CREATININE 1.4 mg/dL (0.7-1.3); GFR 49.5; HEMATOCRIT 37.2 % (39.0-53.0); HEMOGLOBIN 12.6 g/dL (13.0-17.5); POTASSIUM 3.7 mmol/L (3.5-5.1); RED BLOOD COUNT 4.16 x10^6/uL (4.30-5.70); RED CELL DISTRIBUTION WIDTH 14.2 % (11.5-14.5); WHITE BLOOD COUNT 4.5 x10^3/uL (4.0-11.0)
[2018-07-20 08:50] LABS: PROTHROMBIN TIME PATIENT 14.9 SEC (11.7-14.0)
--- NOTE | 2018-07-20 08:59 | EKG ---
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
[2018-07-20] MEDS ORDERED: AMIO200T4 PO (09:34)
[2018-07-20] MEDS ORDERED: BACITRACIN 50,000 UNIT in IV NORMAL SALINE 250ML 250 ML IRR ONE (10:00)
[2018-07-20] MEDS ORDERED: fentaNYL PF VIAL 100 MCG/2 ML VIAL ONE (10:03)
[2018-07-20] MEDS ORDERED: MIDAZOLAM HCL/PF 2 MG/2 ML VIAL. ONE ×2 (10:04→10:25)
[2018-07-20] MEDS ORDERED: LIDOCAINE 2%/EPI 1:100,000 20 ML VIAL. ONE (10:04)
[2018-07-20] MEDS ORDERED: LIDOCAINE 1%/EPI 1:100,000 20 ML VIAL. IJ ONE (10:15)
[2018-07-20] MEDS ORDERED: fentaNYL PF VIAL 100 MCG/2 ML VIAL IV ONE (10:15)
[2018-07-20] MEDS ORDERED: MIDAZOLAM HCL/PF 2 MG/2 ML VIAL. IV ONE (10:15)
[2018-07-20 11:12] VITALS: BP 119/63
[2018-07-20] MEDS ORDERED: NO ANTICOAGULANT THERAPY. MC PRN (11:30)
--- NOTE | 2018-07-20 11:35 | CARD ---
MR#: [id number] Date of Study: 07/20/2018 Ordering Physician: CAROLINA CARVALHO, Referring Physician: CAROLINA CARVALHO, Tech: APPROVED REPORT PROCEDURES 1. Successful implantation of Biotronik dual-chamber permanent pacemaker 2. External cardioversion of atrial fibrillation to sinus rhythm INDICATIONS Atrial fibrillation, sick sinus syndrome with significant pauses PROCEDURE After explaining the risks, benefits, and alternative options, informed consent was obtained from the patient. The patient was brought to the cardiac catheterization lab and the left chest and shoulder were prepp ed and draped in a sterile manner. 30 mL of 2% lidocaine was infiltrated into the skin and subcutaneous tissues for local anesthesia. An incision was made over the left infraclavicular fossa and using blunt dissection and cautery a pocke t was created. Venous access was obtained in the left subclavian vein and 8 and 6 Divehi sheaths inse rted. A Biotronik bipolar active fixation right ventricle lead model Solia, serial #[id number] was advanced u nder fluoroscopy guidance and the tip was positioned in the right ventricular apex. Following this, a Biotronik bipolar active fixation right atrial lead model Solia, serial #[id number] was positioned in the right atrial appendage under fluoroscopy guidance. The leads were secured into place and attached to a Biotronik dual-chamber permanent pacemaker generator model Eluna 8 DR-T ProMRI, serial #[id number]. This was placed in the pocket was subsequently closed in 3 layers. Hemostasis was achieved with th e help of D-stat. The right ventricular lead showed a sensing amplitude of 9.6 mV, impedance of 562 ohms and a threshol d of 1.4 V. The right atrial lead showed sensing amplitude of 2.3 mV and impedence of 490 ohms. Anest hesiology team been administered intravenous propofol for deep sedation. Patient was given 200 J of s ynchronized biphasic DC current with successful conversion of patient's rhythm from atrial fibrillati on to sinus rhythm. Patient tolerated the procedure well. There were no immediate complications. CONCLUSION Successful implantation of Biotronik dual-chamber permanent pacemaker for sick sinus syndrome and suc cessful cardioversion of atrial fibrillation to sinus rhythm. Signed by : Carolina Carvalho, Electronically Approved : 07/20/2018 11:34:04
--- NOTE | 2018-07-20 12:24 | RAD ---
Single view of the chest. 07/20/2018 11:55 AM Indication: POST PACEMAKER Comparison: Chest radiograph April 29, 2018 Findings: Interval placement of a left subclavian dual-lead pacemaking device. No pneumothorax or other consultation is identified. Lungs are clear. Heart size is top normal. No acute osseous changes are seen. Calcified granuloma in left upper lung and possible scarring in the left lung base noted. IMPRESSION: Interval placement of a left subclavian dual-lead pacemaking device. Otherwise stable chest. Electronically signed by: Marquise Osborn MD (07/20/2018 12:20 PM) [id number]
[2018-07-20 12:44] VITALS: BP 111/63
[2018-07-20] MEDS ORDERED: APIX5TAB PO (14:26)
[2018-07-20 14:55] VITALS: BP 111/57
[2018-07-20] MEDS: ACETAMINOPHEN 325 MG TABLET. PO PRN ×2 (15:37→23:22)
[2018-07-20 19:20] VITALS: BP 109/52
[2018-07-20 23:46] VITALS: BP 99/48
[2018-07-21 03:15] VITALS: BP 105/55
[2018-07-21 07:20] VITALS: BP 115/58
[2018-07-21] MEDS: ACETAMINOPHEN 325 MG TABLET. PO PRN (08:19)
--- NOTE | 2018-07-21 09:27 | RAD ---
CHEST PA LATERAL History: 1 day post pacemaker Comparison: AP chest, prior day. Findings: Left chest dual-chamber pacer is stable. Atherosclerotic thoracic aorta. Cardiac size is stable. Development of bilateral pulmonary vascular congestion. There is engorgement of the azygos vein. Mild bibasilar atelectasis. No pneumothorax. IMPRESSION: 1. There is new mild pulmonary vascular congestion. 2. Bibasilar atelectasis. Electronically signed by: Ari Hayward MD (07/21/2018 9:24 AM) [id number]
[2018-07-21 11:00] VITALS: BP 113/43
--- NOTE | 2018-07-21 12:38 | PDOC3 ---
NHAN VEGA MECHANICAL SERVICE SPECIALIST 07/21/18 1238: Discharge Summary Visit Information Date of Admission: Jul 20, 2018 Date of Discharge: Jul 21, 2018 Admitting Diagnosis: AFIB, SSS Final Diagnosis S/P DC cardioversion, PPM, AFIB Brief Hospital Course Allergies Allergies Coded Allergies Type Severity Reaction Last Updated Verified nitrofurazone Allergy Severe anaphalyxis 04/29/18 Yes Vital Signs Vital Signs Date Time Temp Pulse Resp B/P (MAP) Pulse Ox O2 Delivery O2 Flow Rate FiO2 07/21/18 11:00 97.6 71 18 113/43 (66) 92 Room Air 97.6 07/20/18 20:26 3.0 Lab Results Laboratory Tests Test 07/20/18 08:25 07/20/18 17:11 07/20/18 20:36 07/21/18 07:45 White Blood Count 4.5 x10^3/uL (4.0-11.0) Red Blood Count 4.16 x10^6/uL (4.30-5.70) Hemoglobin 12.6 g/dL (13.0-17.5) Hematocrit 37.2 % (39.0-53.0) Mean Corpuscular Volume 90 fL (79-100) Mean Corpuscular Hemoglobin 30 pg (25-35) Mean Corpuscular Hemoglobin Concent 34 g/dL (31-37) Red Cell Distribution Width 14.2 % (11.5-14.5) Platelet Count 126 x10^3/uL (140-400) Prothrombin Time 14.9 SEC (11.7-14.0) Prothromb Time International Ratio 1.2 (0.8-1.1) Sodium Level 140 mmol/L (136-145) Potassium Level 3.7 mmol/L (3.5-5.1) Chloride Level 102 mmol/L (98-107) Carbon Dioxide Level 29 mmol/L (21-32) Anion Gap 9 (6-14) Blood Urea Nitrogen 25 mg/dL (8-26) Creatinine 1.4 mg/dL (0.7-1.3) Estimated GFR (Cockcroft-Gault) 49.5 Glucose Level 121 mg/dL (70-99) Calcium Level 9.3 mg/dL (8.5-10.1) Glucose (Fingerstick) 102 mg/dL (70-99) 185 mg/dL (70-99) 119 mg/dL (70-99) Laboratory Tests Test 07/20/18 17:11 07/20/18 20:36 07/21/18 07:45 Glucose (Fingerstick) 102 mg/dL (70-99) 185 mg/dL (70-99) 119 mg/dL (70-99) Brief Hospital Course Mr. Perkins is a 73 old male admitted for planned cardioversion for his AFIB and PPM placement for SSS. Pt tolerated procedure well. Maintaining SR with few bouts of paroxysmal AFIB episodes.overnight. He is on amiodarone which is to continue and eliquis to start tonight post op for stroke prevention. Pt is ambulatory with cane and no significant pain overnight. No SOA, positive for leg edema and follow up CXR today showed no complications from the PPM but noted with mild vascular congestion. He does take lasix po at home and will provide with IV dose prior to DC. He had a successful implantation of Biotronik dual-chamber permanent pacemaker for sick sinus syndrome and successful cardioversion of atrial fibrillation to sinus rhythm. Repeat interrogation revealed normal functioning device. His left chest surgical incision is intact without erythema or significant swelling. Well approximated with steri strips with no oozing and open to air. LUE neurovascular status intact, sling in place. Discuss LUE limited mobility restrictions and incision care and to be reinforced by staff with written instructions. Follow up in office in 2 weeks for wound check. K replace Rx 10 meq po daily given. Continue home meds including metoprolol. Discharge Information Condition at Discharge: Stable Follow Up: Weeks (2) Disposition/Orders: D/C to Home Scheduled Alfuzosin Hcl (Alfuzosin Hcl) 10 Mg Tab.er.24h, 1 TAB PO DAILY, #30 Ref 11 ( Reported) Entered as Reported by: CHARLENE DUMONT on 04/29/181945 Last Taken: Unknown Dose on 07/20/18 Last Action: Last Taken Edited on 07/20/18832 by ROSALES HILTON Amiodarone Hcl (Amiodarone Hcl) 200 Mg Tablet, 1 TAB PO DAILY for IRREGULAR HEART BEAT, #90 Ref 1 (Reported) Entered as Reported by: ROSALES HILTON on 07/20/18933 Last Taken: Unknown Dose on 07/20/18 Last Action: New Order on 07/20/18933 by ROSALES HILTON Apixaban (Eliquis) 5 Mg Tablet, 5 MG PO BID for blood thinner, (Reported) Entered as Reported by: JAQUI YEUNG RN on 07/20/181425 Last Taken: UNKNOWN on Unknown Date & Time Last Action: New Order on 05/28 by JAQUI YEUNG RN Atorvastatin Calcium (Atorvastatin Calcium) 40 Mg Tablet, 40 MG PO HS for FOR CHOLESTEROL, #30 Ref 0 (Reported) Entered as Reported by: CHARLENE DUMONT on 04/29/181945 Last Taken: Unknown Dose on 07/20/18 Last Action: Last Taken Edited on 07/20/18832 by ROSALES HILTON Finasteride (Finasteride) 5 Mg Tablet, 1 TAB PO DAILY, #30 Ref 11 (Reported) Entered as Reported by: CHARLENE DUMONT on 04/29/181945 Last Taken: Unknown Dose on 07/20/18 Last Action: Last Taken Edited on 07/20/18832 by ROSALES HILTON Furosemide (Furosemide) 40 Mg Tablet, 1 TAB PO DAILY for BLOOD PRESSURE, #30 Ref 5 (Reported) Entered as Reported by: ROSALES HILTON on 07/20/18833 Last Taken: Unknown Dose on 07/19/18 Last Action: New Order on 07/20/18833 by ROSALES HILTON Metformin Hcl (Metformin Hcl) 500 Mg Tablet, 500 MG PO BID for ANTI-DIABETIC, Ref 0 (Reported) Entered as Reported by: CHARLENE DUMONT on 04/29/181945 Last Taken: Unknown Dose on 07/19/18 Last Action: Last Taken Edited on 832 by ROSALES HILTON Metoprolol Tartrate (Metoprolol Tartrate) 50 Mg Tablet, 1 TAB PO BID for BLOOD PRESSURE, #60 Ref 5 (Reported) Entered as Reported by: ROSALES HILTON on 07/20/18833 Last Action: New Order on 07/20/18833 by ROSALES HILTON Pioglitazone Hcl (Actos) 30 Mg Tablet, 1 TAB PO DAILY, #30 Ref 5 (Reported) Entered as Reported by: CHARLENE DUMONT on 04/29/181945 Last Taken: Unknown Dose on 07/19/18 Last Action: Last Taken Edited on 832 by ROSALES HILTON Potassium Chloride (Potassium Chloride) 10 Meq Tab.sr.24h, 10 MEQ PO DAILY for supplemnent for 30 Days, #30 Prescribed by: NHAN VEGA on 07/21/18 1240 Tamsulosin Hcl (Tamsulosin Hcl) 0.4 Mg Cap.er.24h, 1 CAP PO DAILY, #30 Ref 5 ( Reported) Entered as Reported by: CHARLENE TIM on 04/29/186 Last Taken: Unknown Dose on 07/20/18 Last Action: Last Taken Edited on 07/20/18 0892 by ROSALES HILTON Scheduled PRN Methocarbamol (Robaxin) 500 Mg Tablet, 750 MG PO PRN DAILY PRN for PAIN, ( Reported) Entered as Reported by: CHASITYMARINA RAMESH on 04/29/182144 Last Taken: Unknown Dose on 07/20/18 Last Action: Edited on 07/20/18 1426 by JAQUI YEUNG RN Patient Instructions Patient Instructions Must know & what to expect after device implant: 1. Your surgical dressing should be removed prior to discharge from the hospital, but allow the steri- strips to fall off naturally. 2. Activity restrictions: DO NOT raise arm above shoulder level, lift anything heavier than a gallon of milk, and no push or pull motions such as vacuuming/lawn mowing, no swinging motions (golf), etc for 4 weeks. 3. It is OK to use a cell phone or other electronic devices just be sure you do not store it in a breast pocket on the side where the device was placed. 4. Device will be interrogated prior to your discharge from the hospital and then every 3 months for defibrillators and every 6 months for pacemakers. You may be asked to have your device checked remotely from home as well, but this will depend on your particular physicians preference. 5. You may remove the arm immobilizer the day after device placement. Wear the arm immobilizer/splint at night (during sleep times) for 2 week to prevent unintended arm movement that can cause lead dislodgement. 6. Do not drive for one week as the task of driving may lead to unintended arm motion that may cause lead dislodgement. The seatbelt will also rub against the incision site & cause irritation. 7. It is our recommendation that you utilize Tylenol at home for pain control. You need to call our office if you are having uncontrollable pain at the incision site. 8. Keep your incision clean and dry. It is OK to shower. DO NOT submerge in bath, pool, or hot tub, until cleared by your doctor, as this could lead to increase risk of infection.. It is OK to use regular soap just do not scrub the incision site. Water spray from shower should not directly hit the incision. Be sure to blot dry not rub. 9. Inspect your incision daily. If you notice any increased redness, swelling , or drainage, or if you start running a fever, call the office immediately. The number is [phone]. 10. For women, if you need to protect against irritation from the bra straps, you can place a piece of gauze over the incision site for cushion. Please be sure to tape it loosely to allow air to the site & remove the gauze when you remove the bra. 11. Be sure to carry your device identification information card in your wallet/purse at all times. 12. It is OK to go through security at the airport with your device, but be sure to let the TSA know prior to proceeding as the security settings change depending on varying factors. Please do whatever is requested by security at that time. 13. Some of the newer devices may be MRI compatible but, currently, the use of these devices is not widespread, so you likely will not be able to have an MRI. Please clarify this with your physician. If at any time, you feel lightheaded or dizzy/faint, stop what you are doing & lie down immediately. If you are driving, get to the side of the road quickly, turn your car off & call 911 on your cell phone. DO NOT continue to drive as this may cause an accident that seriously injures yourself &/or others. Call the office at [phone] for any questions or concerns. CAROLINA GUZMÁN MD 07/21/18 6074: Discharge Summary Brief Hospital Course Brief Hospital Course Patient seen and examined. Agree with DREDGE RUNNER's assessment and plan. Patient underwent successful permanent pacemaker implantation for sick sinus syndrome and external cardioversion for atrial fibrillation yesterday. Device interrogation showed normal function. Chest x-ray without any pneumothorax. Follow-up with our office in 2 weeks. NHAN VEGA APRN Jul 21, 2018 12:38 CAROLINA GUZMÁN MD Jul 21, 2018 18:14
[2018-07-21] MEDS ORDERED: POTA10TA12 PO (12:40)
[2018-07-21] MEDS ORDERED: FUROSEMIDE 40 MG/4 ML VIAL. IVP ONE (12:45)
== END 2018-07-21 13:48 | disposition home or self-care (01) ==
LOC: CCL 07:56 → 2 NORTH 10:46 → UNDOADMIN 10:46 → UNDODISIN 07-21 13:48
PROVIDERS: ADMIT Internal Medicine Cardiovascular Disease; ATTEND Internal Medicine Cardiovascular Disease
DX: I48.91 Unspecified atrial fibrillation (principal); I49.5 Sick sinus syndrome; Z79.899 Other long term (current) drug therapy
CPT/HCPCS: 33208; 36415; 71045; 71046; 80048; 82962; 85027; 85610; 93005; 96365; 96366; 96375; C1785; C1898; G0378; G0379; J0690; J1940; J2250; J2704; J3010; J3490; J7050; 99152; 99153; J7120; J7030

== ENCOUNTER 2018-10-27 10:15 | Observation (INO) | payer BC ==
[~2018-10-27] VITALS: Ht 182.9 cm; Wt 121.1 kg
[~2018-10-27 10:15] MED LIST changes: +AMIO200T4 PO; +APIX5TAB PO; +FURO40TA4 PO; -IV RINGERS,LACTATED 1000ML 1,000 ML IV SCH; +METO50TA6 PO; +POTA10TA12 PO; -PROPOFOL 20 ML IV ONE
--- NOTE | 2018-10-27 11:10 | RAD ---
PROCEDURE: PORTABLE CHEST 1V CLINICAL INDICATION: CHEST PAIN COMPARISON: 07/21/2018 FINDINGS: No pneumothorax identified. Cardiac and mediastinal contours unremarkable. No pulmonary consolidation or acute airspace disease. No acute osseous abnormalities identified. IMPRESSION: No pulmonary consolidation or acute airspace disease. Electronically signed by: Francisco Peralta DO (10/27/2018 11:06 AM) [facility]
[2018-10-27 11:11] LABS: BASO % 1 % (0-3); EOS # 0.1 x10^3/uL (0.0-0.7); EOS % 1 % (0-3); HEMATOCRIT 37.2 % (39.0-53.0); HEMOGLOBIN 12.2 g/dL (13.0-17.5); LYMPH % 22 % (24-48); MEAN CORPUSCULAR HEMOGLOBIN 30 pg (25-35); MEAN CORPUSCULAR HGB CONC 33 g/dL (31-37); MEAN CORPUSCULAR VOLUME 90 fL (79-100); MONO # 0.3 x10^3/uL (0.0-1.1); MONO % 8 % (0-9); NEUT # 3.1 x10^3uL (1.8-7.7); NEUT % 68 % (31-73); PLATELET COUNT 118 x10^3/uL (140-400); RED BLOOD COUNT 4.13 x10^6/uL (4.30-5.70); RED CELL DISTRIBUTION WIDTH 17.1 % (11.5-14.5); WHITE BLOOD COUNT 4.5 x10^3/uL (4.0-11.0)
[2018-10-27 11:16] LABS: CALCIUM 8.7 mg/dL (8.5-10.1); CREATININE 1.5 mg/dL (0.7-1.3); GFR 45.7; POTASSIUM 4.3 mmol/L (3.5-5.1)
[2018-10-27 11:21] LABS: PROTHROMBIN TIME PATIENT 18.3 SEC (11.7-14.0)
[2018-10-27 11:22] LABS: BILIRUBIN,URINE SMALL (NEG); CLARITY,URINE CLEAR; COLOR,URINE YELLOW; NITRITE,URINE NEGATIVE (NEG); PROTEIN,URINE NEGATIVE (NEG-TRACE)
[2018-10-27 11:23] LABS: ALBUMIN 3.5 g/dL (3.4-5.0); ALBUMIN/GLOBULIN RATIO 1.2 (1.0-1.7); MAGNESIUM 2.1 mg/dL (1.8-2.4); TOTAL BILIRUBIN 0.6 mg/dL (0.2-1.0); TOTAL PROTEIN 6.5 g/dL (6.4-8.2)
[2018-10-27 11:37] LABS: BACTERIA,URINE FEW /HPF (0-FEW); RBC,URINE 0 /HPF (0-2); SQUAMOUS EPITHELIAL CELL,UR FEW /LPF
[2018-10-27 11:37] LABS: CREATINE KINASE 48 U/L (39-308)
--- NOTE | 2018-10-27 11:41 | EKG ---
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
--- NOTE | 2018-10-27 12:14 | PHYS DOC ---
Past Medical History Past Medical History: Arthritis, Diabetes-Type II, Hypertension, Other Additional Past Medical Histor: bph,neuropathy,back surgery,no control of right foot,neck injury Past Surgical History: Other Additional Past Surgical Histo: back,right tib/fib, testicular surgery for nonca tumor,tonsils Alcohol Use: Rarely Drug Use: None Adult General Chief Complaint Chief Complaint: CHEST PAIN [facility] HPI Patient is a 73 year old male presented to ER today for evaluation of chest pain, heaviness in his chest off and on for several days. Patient complaints of trouble breathing with exertion. Patient also said he had bilateral lower extremity swelling. Patient is on Lasix. He denies any cough or fever. Patient has history of coronary artery disease, also had a pacemaker. Review of Systems Review of Systems Constitutional: Denies fever or chills [] Eyes: Denies change in visual acuity, redness, or eye pain [] HENT: Denies nasal congestion or sore throat [] Respiratory: Denies cough, positive for shortness of breath [] Cardiovascular: No additional information not addressed in HPI [] GI: Denies abdominal pain, nausea, vomiting, bloody stools or diarrhea [] : Denies dysuria or hematuria [] Musculoskeletal: Denies back pain or joint pain [] Integument: Denies rash or skin lesions [] Neurologic: Denies headache, focal weakness or sensory changes [] Endocrine: Denies polyuria or polydipsia [] All other systems were reviewed and found to be within normal limits, except as documented in this note. Current Medications Current Medications Current Medications Medications (Trade) Dose Ordered Sig/Arun Start Time Stop Time Status Last Admin Dose Admin Ondansetron HCl (Zofran) 4 mg PRN Q8HRS PRN 10/27/18 12:30 10/28/18 12:29 UNV Allergies Allergies Allergies Coded Allergies Type Severity Reaction Last Updated Verified nitrofurazone Allergy Severe anaphalyxis 04/29/18 Yes Physical Exam Physical Exam Constitutional: Well developed, well nourished, no acute distress, non-toxic appearance. [] HENT: Normocephalic, atraumatic, bilateral external ears normal, oropharynx moist, no oral exudates, nose normal. [] Eyes: PERRLA, EOMI, conjunctiva normal, no discharge. [] Neck: Normal range of motion, no tenderness, supple, no stridor. [] Cardiovascular:Heart rate regular rhythm, no murmur, bilateral lower extremities with pitting edema, 4 plus. Lungs & Thorax: Bilateral breath sounds clear to auscultation [] Abdomen: Bowel sounds normal, soft, no tenderness, no masses, no pulsatile masses. [] Skin: Warm, dry, no erythema, no rash. [] Back: No tenderness, no CVA tenderness. [] Extremities: No tenderness, no cyanosis, no clubbing, ROM intact, pitting edema in lower extremities. Neurologic: Alert and oriented X 3, normal motor function, normal sensory function, no focal deficits noted. [] Psychologic: Affect normal, judgement normal, mood normal. [] Current Patient Data Vital Signs Vital Signs Date Time Temp Pulse Resp B/P (MAP) Pulse Ox O2 Delivery O2 Flow Rate FiO2 10/27/18 11:30 68 12 96/60 (72) 97 Room Air 10/27/18 10:20 97.9 97.9 Lab Values Laboratory Tests Test 10/27/18 10:40 10/27/18 11:03 White Blood Count 4.5 x10^3/uL (4.0-11.0) Red Blood Count 4.13 x10^6/uL (4.30-5.70) L Hemoglobin 12.2 g/dL (13.0-17.5) L Hematocrit 37.2 % (39.0-53.0) L Mean Corpuscular Volume 90 fL (79-100) Mean Corpuscular Hemoglobin 30 pg (25-35) Mean Corpuscular Hemoglobin Concent 33 g/dL (31-37) Red Cell Distribution Width 17.1 % (11.5-14.5) H Platelet Count 118 x10^3/uL (140-400) L Neutrophils (%) (Auto) 68 % (31-73) Lymphocytes (%) (Auto) 22 % (24-48) L Monocytes (%) (Auto) 8 % (0-9) Eosinophils (%) (Auto) 1 % (0-3) Basophils (%) (Auto) 1 % (0-3) Neutrophils # (Auto) 3.1 x10^3uL (1.8-7.7) Lymphocytes # (Auto) 1.0 x10^3/uL (1.0-4.8) Monocytes # (Auto) 0.3 x10^3/uL (0.0-1.1) Eosinophils # (Auto) 0.1 x10^3/uL (0.0-0.7) Basophils # (Auto) 0.0 x10^3/uL (0.0-0.2) Prothrombin Time 18.3 SEC (11.7-14.0) H Prothrombin Time INR 1.6 (0.8-1.1) H PTT 36 SEC (24-38) Sodium Level 143 mmol/L (136-145) Potassium Level 4.3 mmol/L (3.5-5.1) Chloride Level 104 mmol/L (98-107) Carbon Dioxide Level 30 mmol/L (21-32) Anion Gap 9 (6-14) Blood Urea Nitrogen 23 mg/dL (8-26) Creatinine 1.5 mg/dL (0.7-1.3) H Estimated GFR (Cockcroft-Gault) 45.7 BUN/Creatinine Ratio 15 (6-20) Glucose Level 115 mg/dL (70-99) H Calcium Level 8.7 mg/dL (8.5-10.1) Magnesium Level 2.1 mg/dL (1.8-2.4) Total Bilirubin 0.6 mg/dL (0.2-1.0) Aspartate Amino Transferase (AST) 16 U/L (15-37) Alanine Aminotransferase (ALT) 34 U/L (16-63) Alkaline Phosphatase 52 U/L (46-116) Creatine Kinase 48 U/L (39-308) Creatine Kinase MB (Mass) 0.8 ng/mL (0.0-3.6) Creatine Kinase MB Relative Index % (0-4) Troponin I Quantitative 0.017 ng/mL (0.000-0.055) IX-Flu-K-Type Natriuretic Peptide 1607 pg/mL (0-124) H Total Protein 6.5 g/dL (6.4-8.2) Albumin 3.5 g/dL (3.4-5.0) Albumin/Globulin Ratio 1.2 (1.0-1.7) Lipase 193 U/L (73-393) Urine Collection Type Unknown Urine Color Yellow Urine Clarity Clear Urine pH 6.0 Urine Specific [place] 1.025 Urine Protein Negative mg/dL (NEG-TRACE) Urine Glucose (UA) Negative mg/dL (NEG) Urine Ketones (Stick) Trace mg/dL (NEG) Urine Blood Negative (NEG) Urine Nitrite Negative (NEG) Urine Bilirubin Small (NEG) Urine Urobilinogen Dipstick 1.0 mg/dL (0.2 mg/dL) Urine Leukocyte Esterase Negative (NEG) Urine RBC 0 /HPF (0-2) Urine WBC 1-4 /HPF (0-4) Urine Squamous Epithelial Cells Few /LPF Urine Bacteria Few /HPF (0-FEW) Urine Mucus Slight /LPF Laboratory Tests 10/27/18 10:40 Laboratory Tests 10/27/18 10:40 EKG EKG EKG : HR OF 71 BPM, NO STEMI. [] Radiology/Procedures Radiology/Procedures [][facility] [address] [place] [address] IMAGING REPORT Signed PATIENT: HERIBERTO MCCANN JR, I ACCOUNT: [id number] : 1945 LOCATION: ER AGE: 73 SEX: M EXAM STATUS: REG ER ORD. PHYSICIAN: TOM ULLOA DO REASON: chest pain PROCEDURE: PORTABLE CHEST 1V PROCEDURE: PORTABLE CHEST 1V CLINICAL INDICATION: CHEST PAIN COMPARISON: 07/21/2018 FINDINGS: No pneumothorax identified. Cardiac and mediastinal contours unremarkable. No pulmonary consolidation or acute airspace disease. No acute osseous abnormalities identified. IMPRESSION: No pulmonary consolidation or acute airspace disease. Electronically signed by: Francisco Peralta DO (10/27/2018 11:06 AM) [facility] DICTATED and SIGNED BY: FRANCISCO PERALTA DO DATE: 10/27/18 1106 Course & Med Decision Making Course & Med Decision Making Pertinent Labs and Imaging studies reviewed. (See chart for details) [] Dragon Disclaimer Dragon Disclaimer This electronic medical record was generated, in whole or in part, using a voice recognition dictation system. Departure Departure Impression: Primary Impression: Chest pain Disposition: 09 ADMITTED INPATIENT Admitting Physician: Other (DR. KAIA NELSON) Condition: STABLE Referrals: NNIG MCKEON (PCP) TOM ULLOA DO Oct 27, 2018 12:14
[2018-10-27] MEDS ORDERED: NITROGLYCERIN SUBLINGUAL 0.4 MG BOTTLE OF 25. SL PRN (12:30)
[2018-10-27] MEDS ORDERED: ASPIRIN 325 MG TABLET PO ONE (12:30)
[2018-10-27] MEDS ORDERED: ONDANSETRON PF 4 MG/2 ML VIAL. IV PRN (12:30)
--- NOTE | 2018-10-27 13:18 | PDOC2 ---
CARDIAC CONSULT DATE OF CONSULT Date of Consult DATE: 10/27/18 TIME: 13:06 REASON FOR CONSULT Reason for Consult: Chest pain REFERRING PHYSICIAN Referring Physician: Kg SOURCE Source: Chart review, Patient HISTORY OF PRESENT ILLNESS HISTORY OF PRESENT ILLNESS This is a pleasant 73 yo male admitted for complains of lightheadedness and chest discomfort. Reports no JAIME, or exertional CP and no palpitations. In the last 2 weeks he has been having episodes feeling some left chest achiness, not painful and also feeling of skip beats. Also with some charp pain at some point under his left arm pit. Also noted with left jaw tightness but no arm heaviness. No nausea or vomiting, indigestion. Lately he has been having diaphoresis with almost every meals which he did typically have only with spicy foods. When he stand up and starts walking about 25 feet like going to the bathroom he has intermittent episodes of lightheadedness and feeling of almost passing out with tunneling vision but no diaphoresis, palpitations or paresthesia or any vertigo. Both of his legs have been more edematous lately as well. He has been complaint with his hydration and medications. Also has cut down on his coffee intake. 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 Endocrine: Diabetes (2) Dermatology: No pertinent hx PAST SURGICAL HISTORY Past Surgical History Tonsillectomy, Other (left leg repair from trauma; testicular lumpectomy), PPM ( biotronik) FAMILY HISTORY Family History noncontributory SOCIAL HISTORY Smoke: No ALCOHOL: none Drugs: None Lives: with Family ALLERGIES ALLERGIES: Coded Allergies: nitrofurazone (Verified Allergy, Severe, anaphalyxis, 04/29/18) ROS Review of System 14 point ROS evaluated with pertinent positives noted per HPI PHYSICAL EXAM General: Alert, Oriented X3, Cooperative, No acute distress HEENT: Atraumatic, Mucous membr. moist/pink Heart: Regular rate (V paced with underlying AFIB), Normal S1, Normal S2 Abdomen: Soft, No tenderness Extremities: No cyanosis, Other (2-3+ bilateral Le pitting edema) Skin: No breakdown, No significant lesion Neuro: Normal speech, Sensation intact Psych/Mental Status: Mental status NL, Mood NL MUSCULOSKELETAL: Osteoarthritic changes both hands VITALS VITALS Vital Signs Date Time Temp Pulse Resp B/P (MAP) Pulse Ox O2 Delivery O2 Flow Rate FiO2 10/27/18 11:57 69 12 114/63 (80) 97 Room Air 10/27/18 10:20 97.9 97.9 LABS Lab: Laboratory Tests Test 10/27/18 10:40 10/27/18 11:03 White Blood Count 4.5 x10^3/uL (4.0-11.0) Red Blood Count 4.13 x10^6/uL (4.30-5.70) Hemoglobin 12.2 g/dL (13.0-17.5) Hematocrit 37.2 % (39.0-53.0) Mean Corpuscular Volume 90 fL (79-100) Mean Corpuscular Hemoglobin 30 pg (25-35) Mean Corpuscular Hemoglobin Concent 33 g/dL (31-37) Red Cell Distribution Width 17.1 % (11.5-14.5) Platelet Count 118 x10^3/uL (140-400) Neutrophils (%) (Auto) 68 % (31-73) Lymphocytes (%) (Auto) 22 % (24-48) Monocytes (%) (Auto) 8 % (0-9) Eosinophils (%) (Auto) 1 % (0-3) Basophils (%) (Auto) 1 % (0-3) Neutrophils # (Auto) 3.1 x10^3uL (1.8-7.7) Lymphocytes # (Auto) 1.0 x10^3/uL (1.0-4.8) Monocytes # (Auto) 0.3 x10^3/uL (0.0-1.1) Eosinophils # (Auto) 0.1 x10^3/uL (0.0-0.7) Basophils # (Auto) 0.0 x10^3/uL (0.0-0.2) Prothrombin Time 18.3 SEC (11.7-14.0) Prothromb Time International Ratio 1.6 (0.8-1.1) Activated Partial Thromboplast Time 36 SEC (24-38) Sodium Level 143 mmol/L (136-145) Potassium Level 4.3 mmol/L (3.5-5.1) Chloride Level 104 mmol/L (98-107) Carbon Dioxide Level 30 mmol/L (21-32) Anion Gap 9 (6-14) Blood Urea Nitrogen 23 mg/dL (8-26) Creatinine 1.5 mg/dL (0.7-1.3) Estimated GFR (Cockcroft-Gault) 45.7 BUN/Creatinine Ratio 15 (6-20) Glucose Level 115 mg/dL (70-99) Calcium Level 8.7 mg/dL (8.5-10.1) Magnesium Level 2.1 mg/dL (1.8-2.4) Total Bilirubin 0.6 mg/dL (0.2-1.0) Aspartate Amino Transf (AST/SGOT) 16 U/L (15-37) Alanine Aminotransferase (ALT/SGPT) 34 U/L (16-63) Alkaline Phosphatase 52 U/L (46-116) Creatine Kinase 48 U/L (39-308) Creatine Kinase MB (Mass) 0.8 ng/mL (0.0-3.6) Creatine Kinase MB Relative Index % (0-4) Troponin I Quantitative 0.017 ng/mL (0.000-0.055) JJ-Mqb-B-Type Natriuretic Peptide 1607 pg/mL (0-124) Total Protein 6.5 g/dL (6.4-8.2) Albumin 3.5 g/dL (3.4-5.0) Albumin/Globulin Ratio 1.2 (1.0-1.7) Lipase 193 U/L (73-393) Urine Collection Type Unknown Urine Color Yellow Urine Clarity Clear Urine pH 6.0 Urine Specific [place] 1.025 Urine Protein Negative mg/dL (NEG-TRACE) Urine Glucose (UA) Negative mg/dL (NEG) Urine Ketones (Stick) Trace mg/dL (NEG) Urine Blood Negative (NEG) Urine Nitrite Negative (NEG) Urine Bilirubin Small (NEG) Urine Urobilinogen Dipstick 1.0 mg/dL (0.2 mg/dL) Urine Leukocyte Esterase Negative (NEG) Urine RBC 0 /HPF (0-2) Urine WBC 1-4 /HPF (0-4) Urine Squamous Epithelial Cells Few /LPF Urine Bacteria Few /HPF (0-FEW) Urine Mucus Slight /LPF ECHOCARDIOGRAM ECHOCARDIOGRAM <Conclusion> The left ventricular systolic function is normal. The Ejection Fraction is 55-60%. There is normal LV segmental wall motion. Mild mitral regurgitation. Mild tricuspid regurgitation. There is moderate-severe pulmonary hypertension. The PA pressure was estimated at 60 mmHg. There is no evidence of significant pericardial effusion. DATE: 04/30/18 9349 ASSESSMENT/PLAN ASSESSMENT/PLAN 1. Chest pain: mixed features 2. Presyncope: possibly orthostasis as this is positional rather than arrhythmias. 3. SSS: S/P Biotronik PPM. Presently noted with 73% AFIB burden and V paced at 55% 4. HTN: controlled 5. DM2/HLP 6. Suspect venous insufficiency 7. Chronic diastolic CHF with moderate to severe pulmonary HTN: compensated 8. PAFIB: recent CVN. V paced with underlying AFIB. 9. Hx of RLE foot drop. Recommendations 1. Fully interrogate device. Check for orthostasis. Venous reflux study 2. Possibly failed amiodarone. Check TSH. Continue on metoprolol unless any significant orthostasis. Will consider MPI awaiting pending tests. 3. TTE today, Trend troponin. outpt TIGRE workup would be beneficial. Continue with ezekiel for stroke prevention NHAN VEGA APRN Oct 27, 2018 13:18
[2018-10-27 13:51] LABS: CHOLESTEROL/HDL RATIO 2.5
[2018-10-27 13:56] VITALS: BP 117/73
[2018-10-27 14:20] VITALS: BP 104/58
[2018-10-27 14:25] VITALS: BP 103/58
[2018-10-27 14:30] VITALS: BP 102/58
--- NOTE | 2018-10-27 15:51 | RAD ---
MR#: [id number] Date of Study: 10/27/2018 Ordering Physician: NHAN VEGA, Referring Physician: KAIA NELSON, Tech: Obinna Driver, MEY, RDMS, RVT, RDCS, RTR APPROVED REPORT Patient Location : IN-PATIENT Indications Lower Extremity Edema : Bilateral Findings Grayscale images of the bilateral saphenofemoral junctions do not reveal any obvious evidence of thro mbus. The right great saphenous vein measures 9.7 mm and the left great saphenous vein measures 5.6 mm. Bot h of these veins do not show any evidence of reflux. The bilateral lesser saphenous veins do not reflux. Critical Notification Critical Value: No <Conclusion> 1. Negative for reflux in the bilateral greater and lesser saphenous veins. Signed by : Jaxon Moseley, Electronically Approved : 10/27/2018 15:50:44
--- NOTE | 2018-10-27 16:28 | PDOC1 ---
History and Physical Date of Admission Date of Admission October 27, 2018 Identification/Chief Complaint Chief Complaint Lightheadedness Source Source: Caregiver, Chart review, Patient History of Present Illness History of Present Illness Patient is a 73-year-old gentleman with past medical history of coronary artery disease with history of chronic systolic dysfunction status post AICD was in his usual state of health until approximately 2-3 weeks prior to his admission. Patient ever since his device is in place has been expressing what he describes as unsteady gait. The patient goes from the sitting position to standing position and has to brace himself or hold himself to a pillar or whatever he hasn't had no did not fall. Patient denies sensation of room spinning he describes the discomfort more as lightheadedness. Patient denies nausea vomiting no loss of consciousness no blurred vision no slurred speech and no neurological deficits have been appreciated with these events. The patient does give a history that he feels as if his heart is skipping a beat. No chest pain was reported by patient no abnormal-type of symptoms but we have been asked to admit the patient for evaluation of chest pain. The patient denies syncopal episodes no seizure-like activities no changes in his medications have been done recently no changes to settings and his AICD or pacemaker have been done either. He denies any recent infections no upper respiratory tract infections no cough sneezing sputum production no pleurisy no nausea vomiting diarrhea no abdominal pain was reported. The patient has a history of chronic back pain but he denies any acute exacerbation. No left flank pain no urinary symptoms. The patient denies paroxysmal nocturnal dyspnea nor orthopnea no weight gain no peripheral edema was reported either. He is being admitted for cardiological evaluation Past Medical History Cardiovascular: HTN, Hyperlipidemia Pulmonary: No pertinent hx CENTRAL NERVOUS SYSTEM: Periperal neuropathy, Other GI: Constipation, Peptic Ulcer disease Heme/Onc: No pertinent hx Hepatobiliary: No pertinent hx Psych: No pertinent hx Rheumatologic: No pertinent hx Infectious disease: No pertinent hx Renal/: Benign prostatic enlarg. Endocrine: Diabetes Past Surgical History Past Surgical History: Tonsillectomy, Other Social History Smoke: No ALCOHOL: none Drugs: None Current Problem List Problem List Problems Medical Problems: (1) Chest pain Status: Acute Current Medications Current Medications Current Medications Medications (Trade) Dose Ordered Sig/Arun Start Time Stop Time Status Last Admin Dose Admin Aspirin (Luke Aspirin) 325 mg 1X ONCE 3/19/19 12:30 10/27/18 12:31 DC 10/27/18 12:00 325 MG Nitroglycerin (Nitrostat) 0.4 mg PRN Q5MIN PRN 10/27/18 12:30 10/28/18 12:29 Ondansetron HCl (Zofran) 4 mg PRN Q8HRS PRN 10/27/18 12:30 10/28/18 12:29 Allergies Allergies Allergies Coded Allergies Type Severity Reaction Last Updated Verified nitrofurazone Allergy Severe anaphalyxis 04/29/18 Yes ROS Review of System Pertinent as per history of present illness otherwise 14 point review of system is negative Physical Exam Physical Exam Gen.: Obese sitting in bed in no apparent distress Head: Normal shape atraumatic Eyes: Pupils equal reactive to light and accommodation, normal conjunctivae and lids Ears: Normal shape Nose: Normal shape no trauma Mouth: No exudates of the back of throat no thrush no lesions Neck: Supple no JVD no carotid bruit or lymphadenopathy no thyromegaly Chest: Lungs clear to auscultation with good inspiratory effort no crackles rales or rhonchi Cardiovascular: S1-S2 regular rhythm no murmurs gallops or rubs Abdomen: Bowel sounds present soft nontender no hepatosplenomegaly appreciated sign Extremities: No clubbing no cyanosis no edema peripheral pulses palpated bilaterally Neurological: Alert awake oriented in person time place and situation, cranial nerves II through XII intact, no motor or sensory deficits appreciated Psych: Appropriate mood, cooperative Vitals Vitals Vital Signs Date Time Temp Pulse Resp B/P (MAP) Pulse Ox O2 Delivery O2 Flow Rate FiO2 10/27/18 14:30 69 102/58 (73) 10/27/18 14:20 97.7 18 100 Room Air 97.7 Labs Labs Laboratory Tests Test 10/27/18 10:40 10/27/18 11:03 White Blood Count 4.5 x10^3/uL (4.0-11.0) Red Blood Count 4.13 x10^6/uL (4.30-5.70) Hemoglobin 12.2 g/dL (13.0-17.5) Hematocrit 37.2 % (39.0-53.0) Mean Corpuscular Volume 90 fL (79-100) Mean Corpuscular Hemoglobin 30 pg (25-35) Mean Corpuscular Hemoglobin Concent 33 g/dL (31-37) Red Cell Distribution Width 17.1 % (11.5-14.5) Platelet Count 118 x10^3/uL (140-400) Neutrophils (%) (Auto) 68 % (31-73) Lymphocytes (%) (Auto) 22 % (24-48) Monocytes (%) (Auto) 8 % (0-9) Eosinophils (%) (Auto) 1 % (0-3) Basophils (%) (Auto) 1 % (0-3) Neutrophils # (Auto) 3.1 x10^3uL (1.8-7.7) Lymphocytes # (Auto) 1.0 x10^3/uL (1.0-4.8) Monocytes # (Auto) 0.3 x10^3/uL (0.0-1.1) Eosinophils # (Auto) 0.1 x10^3/uL (0.0-0.7) Basophils # (Auto) 0.0 x10^3/uL (0.0-0.2) Prothrombin Time 18.3 SEC (11.7-14.0) Prothromb Time International Ratio 1.6 (0.8-1.1) Activated Partial Thromboplast Time 36 SEC (24-38) Sodium Level 143 mmol/L (136-145) Potassium Level 4.3 mmol/L (3.5-5.1) Chloride Level 104 mmol/L (98-107) Carbon Dioxide Level 30 mmol/L (21-32) Anion Gap 9 (6-14) Blood Urea Nitrogen 23 mg/dL (8-26) Creatinine 1.5 mg/dL (0.7-1.3) Estimated GFR (Cockcroft-Gault) 45.7 BUN/Creatinine Ratio 15 (6-20) Glucose Level 115 mg/dL (70-99) Calcium Level 8.7 mg/dL (8.5-10.1) Magnesium Level 2.1 mg/dL (1.8-2.4) Total Bilirubin 0.6 mg/dL (0.2-1.0) Aspartate Amino Transf (AST/SGOT) 16 U/L (15-37) Alanine Aminotransferase (ALT/SGPT) 34 U/L (16-63) Alkaline Phosphatase 52 U/L (46-116) Creatine Kinase 48 U/L (39-308) Creatine Kinase MB (Mass) 0.8 ng/mL (0.0-3.6) Creatine Kinase MB Relative Index % (0-4) Troponin I Quantitative 0.017 ng/mL (0.000-0.055) YZ-Rub-Y-Type Natriuretic Peptide 1607 pg/mL (0-124) Total Protein 6.5 g/dL (6.4-8.2) Albumin 3.5 g/dL (3.4-5.0) Albumin/Globulin Ratio 1.2 (1.0-1.7) Triglycerides Level 84 mg/dL (0-150) Cholesterol Level 133 mg/dL (0-200) LDL Cholesterol, Calculated 62 mg/dL (0-100) VLDL Cholesterol, Calculated 17 mg/dL (0-40) Non-HDL Cholesterol Calculated 79 mg/dL (0-129) HDL Cholesterol 54 mg/dL (40-60) Cholesterol/HDL Ratio 2.5 Lipase 193 U/L (73-393) Thyroid Stimulating Hormone (TSH) 1.934 uIU/mL (0.358-3.74) Urine Collection Type Unknown Urine Color Yellow Urine Clarity Clear Urine pH 6.0 Urine Specific [place] 1.025 Urine Protein Negative mg/dL (NEG-TRACE) Urine Glucose (UA) Negative mg/dL (NEG) Urine Ketones (Stick) Trace mg/dL (NEG) Urine Blood Negative (NEG) Urine Nitrite Negative (NEG) Urine Bilirubin Small (NEG) Urine Urobilinogen Dipstick 1.0 mg/dL (0.2 mg/dL) Urine Leukocyte Esterase Negative (NEG) Urine RBC 0 /HPF (0-2) Urine WBC 1-4 /HPF (0-4) Urine Squamous Epithelial Cells Few /LPF Urine Bacteria Few /HPF (0-FEW) Urine Mucus Slight /LPF Laboratory Tests Test 10/27/18 10:40 10/27/18 11:03 White Blood Count 4.5 x10^3/uL (4.0-11.0) Red Blood Count 4.13 x10^6/uL (4.30-5.70) Hemoglobin 12.2 g/dL (13.0-17.5) Hematocrit 37.2 % (39.0-53.0) Mean Corpuscular Volume 90 fL (79-100) Mean Corpuscular Hemoglobin 30 pg (25-35) Mean Corpuscular Hemoglobin Concent 33 g/dL (31-37) Red Cell Distribution Width 17.1 % (11.5-14.5) Platelet Count 118 x10^3/uL (140-400) Neutrophils (%) (Auto) 68 % (31-73) Lymphocytes (%) (Auto) 22 % (24-48) Monocytes (%) (Auto) 8 % (0-9) Eosinophils (%) (Auto) 1 % (0-3) Basophils (%) (Auto) 1 % (0-3) Neutrophils # (Auto) 3.1 x10^3uL (1.8-7.7) Lymphocytes # (Auto) 1.0 x10^3/uL (1.0-4.8) Monocytes # (Auto) 0.3 x10^3/uL (0.0-1.1) Eosinophils # (Auto) 0.1 x10^3/uL (0.0-0.7) Basophils # (Auto) 0.0 x10^3/uL (0.0-0.2) Prothrombin Time 18.3 SEC (11.7-14.0) Prothromb Time International Ratio 1.6 (0.8-1.1) Activated Partial Thromboplast Time 36 SEC (24-38) Sodium Level 143 mmol/L (136-145) Potassium Level 4.3 mmol/L (3.5-5.1) Chloride Level 104 mmol/L (98-107) Carbon Dioxide Level 30 mmol/L (21-32) Anion Gap 9 (6-14) Blood Urea Nitrogen 23 mg/dL (8-26) Creatinine 1.5 mg/dL (0.7-1.3) Estimated GFR (Cockcroft-Gault) 45.7 BUN/Creatinine Ratio 15 (6-20) Glucose Level 115 mg/dL (70-99) Calcium Level 8.7 mg/dL (8.5-10.1) Magnesium Level 2.1 mg/dL (1.8-2.4) Total Bilirubin 0.6 mg/dL (0.2-1.0) Aspartate Amino Transf (AST/SGOT) 16 U/L (15-37) Alanine Aminotransferase (ALT/SGPT) 34 U/L (16-63) Alkaline Phosphatase 52 U/L (46-116) Creatine Kinase 48 U/L (39-308) Creatine Kinase MB (Mass) 0.8 ng/mL (0.0-3.6) Creatine Kinase MB Relative Index % (0-4) Troponin I Quantitative 0.017 ng/mL (0.000-0.055) BM-Jam-X-Type Natriuretic Peptide 1607 pg/mL (0-124) Total Protein 6.5 g/dL (6.4-8.2) Albumin 3.5 g/dL (3.4-5.0) Albumin/Globulin Ratio 1.2 (1.0-1.7) Triglycerides Level 84 mg/dL (0-150) Cholesterol Level 133 mg/dL (0-200) LDL Cholesterol, Calculated 62 mg/dL (0-100) VLDL Cholesterol, Calculated 17 mg/dL (0-40) Non-HDL Cholesterol Calculated 79 mg/dL (0-129) HDL Cholesterol 54 mg/dL (40-60) Cholesterol/HDL Ratio 2.5 Lipase 193 U/L (73-393) Thyroid Stimulating Hormone (TSH) 1.934 uIU/mL (0.358-3.74) Urine Collection Type Unknown Urine Color Yellow Urine Clarity Clear Urine pH 6.0 Urine Specific [place] 1.025 Urine Protein Negative mg/dL (NEG-TRACE) Urine Glucose (UA) Negative mg/dL (NEG) Urine Ketones (Stick) Trace mg/dL (NEG) Urine Blood Negative (NEG) Urine Nitrite Negative (NEG) Urine Bilirubin Small (NEG) Urine Urobilinogen Dipstick 1.0 mg/dL (0.2 mg/dL) Urine Leukocyte Esterase Negative (NEG) Urine RBC 0 /HPF (0-2) Urine WBC 1-4 /HPF (0-4) Urine Squamous Epithelial Cells Few /LPF Urine Bacteria Few /HPF (0-FEW) Urine Mucus Slight /LPF VTE Prophylaxis Ordered VTE Prophylaxis Devices: No VTE Pharmacological Prophylaxi: Yes Assessment/Plan Assessment/Plan Chest pain rule out ACS although the patient does not give a history of chest discomfort per se Orthostasis? History of chronic systolic dysfunction as per history History of pulmonary hypertension History of essential hypertension currently well controlled History of diabetes type 2 [id number] History of dyslipidemia History of atrial fibrillation Chronic anticoagulation of Eliquis Plan: Admit patient to CVC Consult cardiology Resume home medications Trend troponins Further recommendations based on the clinical course We'll check orthostatics Reassess in the a.m. DVT prophylaxis for anticoagulate at the moment KAIA NELSON MD Oct 27, 2018 16:28
[2018-10-27 19:00] VITALS: BP 93/60
[2018-10-27] MEDS ORDERED: DEXTROSE 50% 25 GM / 50ML DISP.SYRIN. IV PRN (20:45)
[2018-10-27] MEDS ORDERED: METOPROLOL TART IMMED RELEASE 50 MG TABLET. PO SCH (21:00)
[2018-10-27] MEDS ORDERED: ATORVASTATIN CALCIUM 40 MG TABLET. PO SCH (21:00)
[2018-10-27] MEDS: APIXABAN 5 MG TABLET. PO SCH (21:16)
[2018-10-27 23:00] VITALS: BP 113/64
[2018-10-28 03:00] VITALS: BP 95/55
[2018-10-28 07:00] VITALS: BP 107/56
[2018-10-28 08:00] VITALS: BP_SYST 102; BP_SYST 105; BP_SYST 107; BP_DIAS 60; BP_DIAS 61; BP_DIAS 64
[2018-10-28] MEDS: INSULIN LISPRO 300 UNITS/3 ML INSULN.PEN. SQ SCH ×3 (08:00→17:00)
[2018-10-28] MEDS ORDERED: FUROSEMIDE 40 MG TABLET. PO SCH (09:00)
[2018-10-28] MEDS ORDERED: POTASSIUM CHLORIDE 10 MEQ TABLET.ER. PO SCH (09:00)
[2018-10-28] MEDS ORDERED: METOPROLOL TART IMMED RELEASE 50 MG TABLET. PO SCH (09:00)
[2018-10-28] MEDS ORDERED: TAMSULOSIN 0.4 MG CAP.ER.24H. PO SCH (09:00)
[2018-10-28] MEDS ORDERED: PIOGLITAZONE 15 MG TABLET. PO SCH (09:00)
[2018-10-28] MEDS ORDERED: AMIODARONE HCL 200 MG TABLET. PO SCH (09:00)
[2018-10-28] MEDS ORDERED: FINASTERIDE 5 MG TABLET. PO SCH (09:00)
[2018-10-28 09:05] LABS: CALCIUM 8.6 mg/dL (8.5-10.1); CREATININE 1.3 mg/dL (0.7-1.3); POTASSIUM 4.2 mmol/L (3.5-5.1)
[2018-10-28 11:00] VITALS: BP 110/56
--- NOTE | 2018-10-28 11:14 | PDOC ---
CARDIO Progress Notes Date and Time Date of Service 10/28/2018 Time of Evaluation 1100 Subjective Subjective: No Chest Pain, No shortness of breath, No Palpitations, Other ( better today) Vitals Vitals Vital Signs Date Time Temp Pulse Resp B/P (MAP) Pulse Ox O2 Delivery O2 Flow Rate FiO2 10/28/18 08:00 71 102/64 (77) 10/28/18 07:29 Room Air 10/28/18 07:00 97.9 18 97.9 10/28/18 03:00 94 Weight Weight [ ] Input and Output Intake and Output Intake and Output 10/28/18 07:00 Intake Total 200 ml Output Total 350 ml Balance -150 ml Intake Oral 200 ml Output Urine Total 350 ml Laboratory Labs Laboratory Tests Test 10/27/18 20:20 10/28/18 07:06 10/28/18 08:35 Glucose (Fingerstick) 143 mg/dL (70-99) 94 mg/dL (70-99) Sodium Level 144 mmol/L (136-145) Potassium Level 4.2 mmol/L (3.5-5.1) Chloride Level 103 mmol/L (98-107) Carbon Dioxide Level 31 mmol/L (21-32) Anion Gap 10 (6-14) Blood Urea Nitrogen 21 mg/dL (8-26) Creatinine 1.3 mg/dL (0.7-1.3) Estimated GFR (Cockcroft-Gault) 54.0 Glucose Level 107 mg/dL (70-99) Calcium Level 8.6 mg/dL (8.5-10.1) Troponin I Quantitative < 0.017 ng/mL (0.000-0.055) Physical Exam HEENT: Neck Supple W Full Motion LUNGS: Clear to Auscultation Heart: S1S2, RRR (SR) Abdomen: Soft N/T Extremities: No Calf Tenderness, Other (2-3+ bilateral LE pitting edema) Neurology: alert, oriented, follow commands Assessment Assessment 1. Chest pain: mixed features 2. Presyncope: Suspect due to transient orthostasis secondary to inadequate po hydration and BP meds possibly contributing 3. SSS: S/P Biotronik PPM. High AFIB burden at 73%, no significant arrhythmias. 55% V paced. Normal device 4. HTN: controlled at low end. 5. DM2/HLP 6. Dependent leg edema: reflux study negative for significant issues. 7. Chronic diastolic CHF with moderate to severe pulmonary HTN: compensated 8. PAFIB: recent CVN. V paced with underlying AFIB. 9. Hx of RLE foot drop. Recommendations 1. TTE today. MPI today. Start LE compression stockings 2. Possibly failed amiodarone. May need EP referral. Cotninue amiodarone for now. Decrease metorpol. Encouraged hydration adequacy 3. Outpt TIGRE workup would be beneficial. Continue with eliquis for stroke prevention 4. Anticipate DC today. HBPM 5. Follow up in 4 weeks. NHAN VEGA APRN Oct 28, 2018 11:14
[2018-10-28] MEDS ORDERED: REGADENOSON 0.4 MG/5 ML DISP.SYRIN. IV ONE (11:45)
--- NOTE | 2018-10-28 12:43 | CARD ---
MR#: [id number] Date of Study: 10/28/2018 Ordering Physician: NHAN VEGA, Referring Physician: KAIA NELSON Tech: Donna Lugo RDCS APPROVED REPORT EXAM: Two-dimensional and M-mode echocardiogram with Doppler and color Doppler. Other Information Quality : Good Rhythm : Atrial Fibrillation INDICATION Presyncope Surgery/Intervention Pacemaker: 2D DIMENSIONS RVDd3.2 (2.9-3.5cm)Left Atrium(2D)4.0 (1.6-4.0cm) IVSd1.1 (0.7-1.1cm)Aortic Root(2D)3.0 (2.0-3.7cm) LVDd4.3 (3.9-5.9cm)LVOT Diameter2.2 (1.8-2.4cm) PWd1.2 (0.7-1.1cm)LVDs2.5 (2.5-4.0cm) FS (%) 30.0 %SV61.2 ml LVEF(%)60.0 (>50%) Aortic Valve AoV Peak Thomas.128.7cm/sAoV VTI21.3cm AO Peak GR.6.6mmHgLVOT Peak Thomas.73.0cm/s LVOT VTI 15.35cmAO Mean GR.4mmHg FRED (VMAX)2.52ro0INY (VTI)2.69cm2 Mitral Valve MV E Kmmwwamp39.3cm/sMV DECEL HHBU475ha MV KGL34lqOVK (PHT)4.46cm2 Tricuspid Valve TR P. Wvojevax469pj/sRAP [id number] TR Peak Gr.51lfKoCYMA53pdYo LEFT VENTRICLE The left ventricle is normal size. There is mild concentric left ventricular hypertrophy. The left ve ntricular systolic function is normal and the ejection fraction is within normal range. The Ejection Fraction is 55-60%. RIGHT VENTRICLE The right ventricle is normal size. The right ventricular systolic function is normal. ATRIA The left atrium is mildly dilated. The right atrium is mildly dilated. The interatrial septum is inta ct with no evidence for an atrial septal defect or patent foramen ovale as noted on 2-D or Doppler im aging. AORTIC VALVE The aortic valve is calcified but opens well. Doppler and Color Flow revealed no significant aortic r egurgitation. There is no significant aortic valvular stenosis. MITRAL VALVE The mitral valve is calcified but opens well. There is no evidence of mitral valve prolapse. There is no mitral valve stenosis. Doppler and Color-flow revealed mild mitral regurgitation. TRICUSPID VALVE The tricuspid valve is normal in structure and function. Doppler and Color Flow revealed mild tricusp id regurgitation. The PA pressure was estimated at 48 mmHg. There is no tricuspid valve stenosis. PULMONIC VALVE The pulmonic valve is not well visualized. Doppler and Color Flow revealed trace pulmonic valvular re gurgitation. There is no pulmonic valvular stenosis. GREAT VESSELS The aortic root is normal in size. The ascending aorta is normal in size. The IVC is dilated and bertha apses <50% with inspiration. PERICARDIAL EFFUSION There is no evidence of significant pericardial effusion. Critical Notification Critical Value: No <Conclusion> The left ventricle is normal size. The left ventricular systolic function is normal and the ejection fraction is within normal range. The Ejection Fraction is 55-60%. There is mild concentric left ventricular hypertrophy. There is no significant aortic valvular stenosis. Doppler and Color Flow revealed no significant aortic regurgitation. Doppler and Color-flow revealed mild mitral regurgitation. Doppler and Color Flow revealed mild tricuspid regurgitation. The PA pressure was estimated at 48 mmHg. Signed by : Rafa Kaur MD Electronically Approved : 10/28/2018 12:42:58
--- NOTE | 2018-10-28 13:17 | NUR ---
held lasix and metoprolol today per ehsan hanks free text order
[2018-10-28] MEDS: APIXABAN 5 MG TABLET. PO SCH (13:35)
--- NOTE | 2018-10-28 13:57 | PDOC ---
PROGRESS NOTES Chief Complaint Chief Complaint Chest pain resolved Orthostasis? History of chronic systolic dysfunction as per history History of pulmonary hypertension History of essential hypertension currently well controlled History of diabetes type 2 seh-[id number] History of dyslipidemia History of atrial fibrillation Chronic anticoagulation of Eliquis Workup as per cardiology including echocardiogram pending Further recommendations will be based on the clinical course Dose adjustments being done by vmware consultant Complaining off lower extremity edema he may need a touch of diuretic as well History of Present Illness History of Present Illness Patient feeling better compared to admission. Patient's metoprolol has been adjusted by her vmware consultant. Patient will undergo echocardiogram today Vitals Vitals Vital Signs Date Time Temp Pulse Resp B/P (MAP) Pulse Ox O2 Delivery O2 Flow Rate FiO2 10/28/18 13:36 69 110/56 10/28/18 11:00 98.1 18 96 Room Air 98.1 Physical Exam General: Alert, Oriented X3, Cooperative, No acute distress Heart: Regular rate (V paced with underlying AFIB), Normal S1, Normal S2 Abdomen: Soft, No tenderness Extremities: No cyanosis, Other (2-3+ bilateral Le pitting edema) Skin: No breakdown, No significant lesion Labs LABS Laboratory Tests Test 10/27/18 20:20 10/28/18 07:06 10/28/18 08:35 10/28/18 11:34 Glucose (Fingerstick) 143 mg/dL (70-99) 94 mg/dL (70-99) 109 mg/dL (70-99) Sodium Level 144 mmol/L (136-145) Potassium Level 4.2 mmol/L (3.5-5.1) Chloride Level 103 mmol/L (98-107) Carbon Dioxide Level 31 mmol/L (21-32) Anion Gap 10 (6-14) Blood Urea Nitrogen 21 mg/dL (8-26) Creatinine 1.3 mg/dL (0.7-1.3) Estimated GFR (Cockcroft-Gault) 54.0 Glucose Level 107 mg/dL (70-99) Calcium Level 8.6 mg/dL (8.5-10.1) Troponin I Quantitative < 0.017 ng/mL (0.000-0.055) Assessment and Plan Assessmemt and Plan Problems Medical Problems: (1) Chest pain Status: Acute Comment Review of Relevant I have reviewed the following items adair (where applicable) has been applied. Labs Laboratory Tests Test 3/19/19 10:40 10/27/18 11:03 10/27/18 20:20 10/28/18 07:06 White Blood Count 4.5 x10^3/uL (4.0-11.0) Red Blood Count 4.13 x10^6/uL (4.30-5.70) Hemoglobin 12.2 g/dL (13.0-17.5) Hematocrit 37.2 % (39.0-53.0) Mean Corpuscular Volume 90 fL (79-100) Mean Corpuscular Hemoglobin 30 pg (25-35) Mean Corpuscular Hemoglobin Concent 33 g/dL (31-37) Red Cell Distribution Width 17.1 % (11.5-14.5) Platelet Count 118 x10^3/uL (140-400) Neutrophils (%) (Auto) 68 % (31-73) Lymphocytes (%) (Auto) 22 % (24-48) Monocytes (%) (Auto) 8 % (0-9) Eosinophils (%) (Auto) 1 % (0-3) Basophils (%) (Auto) 1 % (0-3) Neutrophils # (Auto) 3.1 x10^3uL (1.8-7.7) Lymphocytes # (Auto) 1.0 x10^3/uL (1.0-4.8) Monocytes # (Auto) 0.3 x10^3/uL (0.0-1.1) Eosinophils # (Auto) 0.1 x10^3/uL (0.0-0.7) Basophils # (Auto) 0.0 x10^3/uL (0.0-0.2) Prothrombin Time 18.3 SEC (11.7-14.0) Prothromb Time International Ratio 1.6 (0.8-1.1) Activated Partial Thromboplast Time 36 SEC (24-38) Sodium Level 143 mmol/L (136-145) Potassium Level 4.3 mmol/L (3.5-5.1) Chloride Level 104 mmol/L (98-107) Carbon Dioxide Level 30 mmol/L (21-32) Anion Gap 9 (6-14) Blood Urea Nitrogen 23 mg/dL (8-26) Creatinine 1.5 mg/dL (0.7-1.3) Estimated GFR (Cockcroft-Gault) 45.7 BUN/Creatinine Ratio 15 (6-20) Glucose Level 115 mg/dL (70-99) Calcium Level 8.7 mg/dL (8.5-10.1) Magnesium Level 2.1 mg/dL (1.8-2.4) Total Bilirubin 0.6 mg/dL (0.2-1.0) Aspartate Amino Transf (AST/SGOT) 16 U/L (15-37) Alanine Aminotransferase (ALT/SGPT) 34 U/L (16-63) Alkaline Phosphatase 52 U/L (46-116) Creatine Kinase 48 U/L (39-308) Creatine Kinase MB (Mass) 0.8 ng/mL (0.0-3.6) Creatine Kinase MB Relative Index % (0-4) Troponin I Quantitative 0.017 ng/mL (0.000-0.055) WQ-Wwz-I-Type Natriuretic Peptide 1607 pg/mL (0-124) Total Protein 6.5 g/dL (6.4-8.2) Albumin 3.5 g/dL (3.4-5.0) Albumin/Globulin Ratio 1.2 (1.0-1.7) Triglycerides Level 84 mg/dL (0-150) Cholesterol Level 133 mg/dL (0-200) LDL Cholesterol, Calculated 62 mg/dL (0-100) VLDL Cholesterol, Calculated 17 mg/dL (0-40) Non-HDL Cholesterol Calculated 79 mg/dL (0-129) HDL Cholesterol 54 mg/dL (40-60) Cholesterol/HDL Ratio 2.5 Lipase 193 U/L (73-393) Thyroid Stimulating Hormone (TSH) 1.934 uIU/mL (0.358-3.74) Urine Collection Type Unknown Urine Color Yellow Urine Clarity Clear Urine pH 6.0 Urine Specific [place] 1.025 Urine Protein Negative mg/dL (NEG-TRACE) Urine Glucose (UA) Negative mg/dL (NEG) Urine Ketones (Stick) Trace mg/dL (NEG) Urine Blood Negative (NEG) Urine Nitrite Negative (NEG) Urine Bilirubin Small (NEG) Urine Urobilinogen Dipstick 1.0 mg/dL (0.2 mg/dL) Urine Leukocyte Esterase Negative (NEG) Urine RBC 0 /HPF (0-2) Urine WBC 1-4 /HPF (0-4) Urine Squamous Epithelial Cells Few /LPF Urine Bacteria Few /HPF (0-FEW) Urine Mucus Slight /LPF Glucose (Fingerstick) 143 mg/dL (70-99) 94 mg/dL (70-99) Test 10/28/18 08:35 10/28/18 11:34 Sodium Level 144 mmol/L (136-145) Potassium Level 4.2 mmol/L (3.5-5.1) Chloride Level 103 mmol/L (98-107) Carbon Dioxide Level 31 mmol/L (21-32) Anion Gap 10 (6-14) Blood Urea Nitrogen 21 mg/dL (8-26) Creatinine 1.3 mg/dL (0.7-1.3) Estimated GFR (Cockcroft-Gault) 54.0 Glucose Level 107 mg/dL (70-99) Calcium Level 8.6 mg/dL (8.5-10.1) Troponin I Quantitative < 0.017 ng/mL (0.000-0.055) Glucose (Fingerstick) 109 mg/dL (70-99) Laboratory Tests Test 10/27/18 20:20 10/28/18 07:06 10/28/18 08:35 10/28/18 11:34 Glucose (Fingerstick) 143 mg/dL (70-99) 94 mg/dL (70-99) 109 mg/dL (70-99) Sodium Level 144 mmol/L (136-145) Potassium Level 4.2 mmol/L (3.5-5.1) Chloride Level 103 mmol/L (98-107) Carbon Dioxide Level 31 mmol/L (21-32) Anion Gap 10 (6-14) Blood Urea Nitrogen 21 mg/dL (8-26) Creatinine 1.3 mg/dL (0.7-1.3) Estimated GFR (Cockcroft-Gault) 54.0 Glucose Level 107 mg/dL (70-99) Calcium Level 8.6 mg/dL (8.5-10.1) Troponin I Quantitative < 0.017 ng/mL (0.000-0.055) Medications Current Medications Ondansetron HCl (Zofran) 4 mg PRN Q8HRS PRN IV NAUSEA/VOMITING; Start 10/27/18 at 12:30; Stop 10/28/18 at 12:29; Status DC Nitroglycerin (Nitrostat) 0.4 mg PRN Q5MIN PRN SL CHEST PAIN; Start 10/27/18 at 12:30; Stop 10/28/18 at 12:29; Status DC Aspirin (Luke Aspirin) 325 mg 1X ONCE PO Last administered on 10/27/18at 12:00 ; Start 10/27/18 at 12:30; Stop 10/27/18 at 12:31; Status DC Amiodarone HCl (Cordarone) 200 mg DAILY PO Last administered on 10/28/18at 13:36 ; Start 10/28/18 at 09:00 Apixaban (Eliquis) 5 mg BID PO Last administered on 10/28/18at 13:35; Start at 21:00 Atorvastatin Calcium (Lipitor) 40 mg HS PO Last administered on 10/27/18at 21:16 ; Start 10/27/18 at 21:00 Finasteride (Proscar) 5 mg DAILY PO Last administered on 10/28/18at 13:35; Start 10/28/18 at 09:00 Furosemide (Lasix) 40 mg DAILY PO ; Start 10/28/18 at 09:00 Metoprolol Tartrate (Lopressor) 100 mg BID PO Last administered on 10/27/18at 21 :19; Start 10/27/18 at 21:00; Stop 10/28/18 at 08:01; Status DC Potassium Chloride (Klor-Con) 10 meq DAILY PO Last administered on 10/28/18at 13 :36; Start 10/28/18 at 09:00 Tamsulosin HCl (Flomax) 0.4 mg DAILY PO Last administered on 10/28/18at 13:35; Start 10/28/18 at 09:00 Pioglitazone HCl (Actos) 30 mg DAILY PO ; Start 10/28/18 at 09:00; Status Cancel Insulin Human Lispro (HumaLOG) 0-7 UNITS TIDWMEALS SQ ; Start 10/28/18 at 08:00 Dextrose (Dextrose 50%-Water Syringe) 12.5 gm PRN Q15MIN PRN IV SEE COMMENTS; Start 10/27/18 at 20:45 Metoprolol Tartrate (Lopressor) 50 mg BID PO ; Start 10/28/18 at 09:00 Regadenoson (Lexiscan) 0.4 mg 1X ONCE IV Last administered on 10/28/18at 13:10 ; Start 10/28/18 at 11:45; Stop 10/28/18 at 11:46; Status DC Active Scripts Active Potassium Chloride 10 Meq Tab.sr.24h 10 Meq PO DAILY 30 Days Reported Eliquis (Apixaban) 5 Mg Tablet 5 Mg PO BID Amiodarone Hcl 200 Mg Tablet 1 Tab PO DAILY Furosemide 40 Mg Tablet 1 Tab PO DAILY Metoprolol Tartrate 50 Mg Tablet 2 Tab PO BID Robaxin (Methocarbamol) 500 Mg Tablet 750 Mg PO PRN DAILY PRN Tamsulosin Hcl 0.4 Mg Cap.er.24h 1 Cap PO DAILY Alfuzosin Hcl 10 Mg Tab.er.24h 1 Tab PO DAILY Atorvastatin Calcium 40 Mg Tablet 40 Mg PO HS Finasteride 5 Mg Tablet 1 Tab PO DAILY Actos (Pioglitazone Hcl) 30 Mg Tablet 1 Tab PO DAILY Metformin Hcl 500 Mg Tablet 500 Mg PO BID Vitals/I & O Vital Sign - Last 24 Hours 10/27/18 10/27/18 10/27/18 10/27/18 13:56 14:20 14:25 14:30 Temp 97.9 97.7 97.9 97.7 Pulse 69 69 71 69 Resp 18 18 B/P (MAP) 117/73 (88) 104/58 (73) 103/58 (73) 102/58 (73) Pulse Ox 96 100 O2 Delivery Room Air Room Air 10/27/18 10/27/18 10/27/18 10/27/18 19:00 20:00 21:19 23:00 Temp 97.6 97.9 97.6 97.9 Pulse 82 77 69 Resp 18 18 B/P (MAP) 93/60 (71) 103/57 113/64 (80) Pulse Ox 97 96 O2 Delivery Room Air Room Air Room Air 10/28/18 10/28/18 10/28/18 10/28/18 03:00 07:00 07:29 08:00 Temp 97.9 97.9 97.9 97.9 Pulse 70 69 69 Resp 18 18 B/P (MAP) 95/55 (68) 107/56 (73) 107/61 (76) Pulse Ox 94 O2 Delivery Room Air Room Air 10/28/18 10/28/18 10/28/18 10/28/18 08:00 08:00 11:00 13:36 Temp 98.1 98.1 Pulse 75 71 69 69 Resp 18 B/P (MAP) 105/60 (75) 102/64 (77) 110/56 (74) 110/56 Pulse Ox 96 O2 Delivery Room Air Intake and Output 10/27/18 10/27/18 10/28/18 14:59 22:59 06:59 Intake Total 200 ml Output Total 350 ml Balance -150 ml KAIA NELSON MD Oct 28, 2018 13:57
[2018-10-28 14:50] VITALS: BP 98/55
--- NOTE | 2018-10-28 16:11 | RAD ---
MR#: [id number] Date of Study: 10/28/2018 Ordering Physician: NHAN VEGA, Referring Physician: BEAR PEREZ Tech: BG Cota APPROVED REPORT Test Type: Pharmacological Stress Nurse/Tech: Nellie Rincon R.N. Test Indications: c/p Cardiac History: PPM, afib, obese ,DM Medications: See Electronic Medical Record Medical History: See Electronic Medical Record Resting EC% v-paced Resting Heart Rate: 62 bpm Resting Blood Pressure: 113/61mmHg Pretest Chest Pain: None Nurse/Tech Notes S1S2, lungs CTA Consent: The procedure was explained to the patient in lay terms. Informed consent was witnessed. Pedro Pablo eout was entered into [employer]. History and Stress Test performed by BG Cota Pharm. Details Pharmacologic stress testing was performed using 0.4mg per 5ml of regadenoson given intravenously ove r 7-10 seconds. Stress Symptoms slight SOA POST EXERCISE Reason for Termination: Infusion complete Max HR: 99 bpm Max Blood Pressure: 118/57mmHg Blood Pressure response to exercise: abnormal- went down then up then down again Heart Rate response to exercise: wnl Chest Pain: No. Arrhythmia: No. ST Change: No. INTERPRETATION Stress EKG Conclusion: The resting EKG shows a V paced rhythm. The stress EKG shows no significant abnormalities. No EKG evidence of stressed induced ischemia. Imaging Protocol IMAGE PROTOCOL: Rest Tc-99m/stress Tc-99m 1 day Rest: Stress: Viability: Radiopharm.Tc99m [id number] Sestamibi Dose10.5mCi 27mCi Duration 16min. 13min. Img Date 10/28/2018 10/28/2018 Inj-Img [id number]. 90min. Rest Admin Site:IV - Left ForearmAdministrator:BG Cota Stress Admin Site: IV - Left ForearmAdministrator: BG Cota STRESS DATA End Diast. Vol.136.0mlLVEDV index BSA57.0ml End Syst. Vol.38.0mlLVESV index BSA16.0ml Myocardial Jhrr804.0gEject. Sdnraeeu11.0% Stress Scores Regional WT0.00Summed WT1.00 Regional WM0.00Summed WM2.00 LV Perfusion The stress scans showed mild inferior wall thinning. The rest scans showed mild inferior wall thinning. Nuclear imaging shows no significant reversible ischemia. Nuclear imaging shows mild fixed inferior wall thinning with normal LV systolic function suggestive o f an attenuation defect. Wall Motion Eft ventricular systolic function is normal with no regional wall motion abnormalities and an ejectio n fraction of greater than 70%. LV Perf. Quant 17 Seg. SSS3.00 17 Seg. SRS5.00 17 Seg. SDS0.00 Stress Defect Extent (% LAD)0.00Rest Defect Extent (% LAD)0.00Rev. Defect Extent (% LAD)0.00 Stress Defect Extent (% LCX) 11.30Rest Defect Extent (% LCX)22.50Rev. Defect Extent (% LCX)0.00 Stress Defect Extent (% RCA)4.40Rest Defect Extent (% RCA)5.60Rev. Defect Extent (% RCA)1.10 Stress Defect Extent (% ZAHRA)3.70Rest Defect Extent (% ZAHRA)7.80Rev. Defect Extent (% ZAHRA)0.20 Conclusion 1. No EKG evidence of stressed induced ischemia. 2. Nuclear imaging shows no significant reversible ischemia. 3. Nuclear imaging shows a small area of fixed inferior wall thinning suggestive of an attenuation de fect. 4. Normal left ventricular systolic function with no regional wall motion abnormalities and an ejecti on fraction of greater than 70%. 5. Moderately low risk Lexiscan nuclear stress test with no reversible ischemia and normal LV systoli c function. Signed by : Rafa Kaur MD Electronically Approved : 10/28/2018 16:11:12
--- NOTE | 2018-10-28 18:37 | NUR ---
pt is discharged home with self care at 1810 via wheelchair via [employer]. pt is in stable condition. pt has all belongings with him. pt received discharge instructions and prescriptions were called [facility] pharmacy and stated he had no further questions for me.
[2018-10-28] MEDS ORDERED: METOPROLOL TART IMMED RELEASE 25 MG TABLET. PO SCH (21:00)
== END 2018-10-28 18:10 | disposition home or self-care (01) ==
LOC: ER 10:15 → 2 SOUTH 12:15
PROVIDERS: ADMIT Internal Medicine; ATTEND Internal Medicine
DX: R07.89 Other chest pain (principal); N40.0 Benign prostatic hyperplasia without lower urinary tract symptoms; I25.10 Atherosclerotic heart disease of native coronary artery without angina pectoris; Z95.0 Presence of cardiac pacemaker; Z95.810 Presence of automatic (implantable) cardiac defibrillator; I11.0 Hypertensive heart disease with heart failure; I50.22 Chronic systolic (congestive) heart failure; R26.81 Unsteadiness on feet; R42 Dizziness and giddiness; E78.5 Hyperlipidemia, unspecified; K59.00 Constipation, unspecified; Z87.11 Personal history of peptic ulcer disease; E11.42 Type 2 diabetes mellitus with diabetic polyneuropathy; I27.20 Pulmonary hypertension, unspecified; I48.91 Unspecified atrial fibrillation; Z79.01 Long term (current) use of anticoagulants
CPT/HCPCS: 36415; 71045; 78452; 80048; 80053; 80061; 81001; 82550; 82553; 82962; 83690; 83735; 83880; 84443; 84484; 85025; 85610; 85730; 93005; 93017; 93306; 93970; 99284; A9500; G0378; J2785; 96374; G0379; J1815

== ENCOUNTER → 2019-12-28 | Outpatient (CLI) | payer BC ==
[~2019-12-28] MED LIST changes: -ALFU10TA3 PO; +ALFU10TA4 PO; +REGADENOSON 0.4 MG/5 ML DISP.SYRIN. IV ONE
--- NOTE | 2019-12-28 09:54 | CARD ---
MR#: [id number] Date of Study: 12/28/2019 Ordering Physician: CAROLINA GUZMÁN, Referring Physician: CAROLINA GUZMÁN, Tech: Awa Billingsley APPROVED REPORT EXAM: Two-dimensional and M-mode echocardiogram with Doppler and color Doppler. Other Information Quality : AverageHR: 75bpm Technically limited study due to body habitus. INDICATION Atrial Fibrillation Surgery/Intervention Pacemaker: Date: 2017 RISK FACTORS Hyperlipidemia Diabetes 2D DIMENSIONS Left Atrium(2D)4.2 (1.6-4.0cm)IVSd1.3 (0.7-1.1cm) Aortic Root(2D)3.4 (2.0-3.7cm)LVDd4.5 (3.9-5.9cm) LVOT Diameter2.1 (1.8-2.4cm)PWd1.3 (0.7-1.1cm) LVDs3.0 (2.5-4.0cm)FS (%) 33.2 % SV58.3 mlLVEF(%)61.9 (>50%) Aortic Valve AoV Peak Thomas.133.0cm/sAoV VTI21.6cm AO Peak GR.7.1mmHgLVOT Peak Thomas.82.1cm/s LVOT VTI 16.63cmAO Mean GR.3mmHg FRED (VMAX)1.46xo7KOK (VTI)2.59cm2 Mitral Valve MV E Votfqami09.4cm/sMV DECEL DZWK153cu MV A Crkldiln45.6cm/sMV FZV39eo E/A Ratio2.4MVA (PHT)3.44cm2 TDI E/Lateral E'10.6E/Medial E'14.6 Pulmonary Valve PV Peak Udkzttbl31.6cm/sPV Peak Grad.4mmHg Tricuspid Valve TR P. Ajamgnga355er/sRAP WZUEGQMB5viIz TR Peak Gr.10vrIaCEBX12waUf LEFT VENTRICLE The left ventricle is normal size. There is mild to moderate concentric left ventricular hypertrophy. The left ventricular systolic function is normal and the ejection fraction is within normal range. T he Ejection Fraction is 50-55%. Septal motion suggestive of conduction defect/pacing. Otherwise, norm al wall motion. Tissue Doppler imaging reveals moderate left ventricular diastolic dysfunction. No le ft ventricle thrombus noted on this study. RIGHT VENTRICLE The right ventricle is normal size. There is normal right ventricular wall thickness. The right ventr icular systolic function is normal. There is a pacemaker lead in the RA/RV ATRIA The left atrium is borderline dilated. The right atrium is mildly dilated. The interatrial septum is intact with no evidence for an atrial septal defect or patent foramen ovale as noted on 2-D or Dopple r imaging. AORTIC VALVE The aortic valve is normal in structure and function. Doppler and Color Flow revealed no significant aortic regurgitation. There is no significant aortic valvular stenosis. MITRAL VALVE The mitral valve is normal in structure and function. There is no evidence of mitral valve prolapse. There is no mitral valve stenosis. Doppler and Color-flow revealed mild mitral regurgitation. TRICUSPID VALVE The tricuspid valve is normal in structure and function. Doppler and Color Flow revealed mild tricusp id regurgitation with an estimated PAP of 55 mmHg. There is no tricuspid valve stenosis. PULMONIC VALVE The pulmonic valve is not well visualized. Doppler and Color Flow revealed trace pulmonic valvular re gurgitation. There is no pulmonic valvular stenosis. GREAT VESSELS The aortic root is normal in size. The IVC is normal in size and collapses >50% with inspiration. PERICARDIAL EFFUSION There is no evidence of significant pericardial effusion. Critical Notification Critical Value: No <Conclusion> The left ventricular systolic function is normal and the ejection fraction is within normal range. Th e Ejection Fraction is 50-55%. Septal motion suggestive of conduction defect/pacing. Otherwise, normal wall motion. There is a pacemaker lead in the RA/RV There is mild to moderate concentric left ventricular hypertrophy. Doppler and Color-flow revealed mild mitral regurgitation. Doppler and Color Flow revealed mild tricuspid regurgitation with an estimated PAP of 55 mmHg. Signed by : Jaxon Moseley, Electronically Approved : 12/28/2019 09:53:47
--- NOTE | 2019-12-28 12:00 | RAD ---
MR#: [id number] Date of Study: 12/28/2019 Ordering Physician: CAROLINA GUZMÁN, Referring Physician: BEAR ALEJO Tech: RT Willow Montes) (N) APPROVED REPORT Test Type: Pharmacological Stress Nurse/Tech: RT Simon (Day) (N) Test Indications: permanent atrial fibrillation Cardiac History: Afib dx 2018, pacemaker Medications: see EHR Medical History: diabetic Resting ECG: Afib Resting Heart Rate: 70 bpm Resting Blood Pressure: 138/70mmHg Nurse/Tech Notes Consent: The procedure was explained to the patient in lay terms. Informed consent was witnessed. Pedro Pablo eout was entered into [employer]. History and Stress Test performed by RT Simon (R) (N) Pharm. Details Pharmacologic stress testing was performed using 0.4mg per 5ml of regadenoson given intravenously ove r 7-10 seconds. POST EXERCISE Reason for Termination: Infusion complete Max HR: 95 bpm Max Blood Pressure: 147/60mmHg INTERPRETATION Stress EKG Conclusion: No acute changes were noted. Non-diagnostic EKG due to pacing. Imaging Protocol IMAGE PROTOCOL: Rest Tc-99m/stress Tc-99m 1 day Rest: Stress: Viability: Radiopharm.Tc99m AdpcuszzoJa49r Sestamibi Dose10.7mCi 30.6mCi Duration 15min. 10min. Img Date 12/28/2019 12/28/2019 Inj-Img Zneh06olj. 60min. Rest Admin Site:IV - Right ForearmAdministrator:RT Simon (Day)(N) Stress Admin Site: IV - Right ForearmAdministrator: RT Simon (Day)(N) STRESS DATA End Diast. Vol.122.0mlAv. Heart Rate72.0bpm End Syst. Vol.38.0mlCO Index BSA0.0L/min Myocardial Yffr442.0gEject. Wambjhmr15.0% Stress Rates Pk. Fill Rate3.22EDV/secLVtime Pk. Fill 160.37msec Pk. Empty Rate3.76ESV/secLVtime Pk. Djctr307.32msec 1/3 Pk. Fill1.71EDV/sec Stress Scores Regional WT0.00Summed WT6.00 Regional WM0.00Summed WM2.00 The rest and stress images show normal perfusion, normal contraction and thickening. LV Perf. Quant 17 Seg. SSS0.00 17 Seg. SRS7.00 17 Seg. SDS0.00 Stress Defect Extent (% LAD)0.00Rest Defect Extent (% LAD)0.00Rev. Defect Extent (% LAD)0.00 Stress Defect Extent (% LCX) 7.50Rest Defect Extent (% LCX)0.00Rev. Defect Extent (% LCX)0.00 Stress Defect Extent (% RCA)0.00Rest Defect Extent (% RCA)24.40Rev. Defect Extent (% RCA)0.00 Stress Defect Extent (% ZAHRA)1.30Rest Defect Extent (% ZAHRA)6.50Rev. Defect Extent (% ZAHRA)0.00 Other Information Quality:Good Risk Assessment: Low Risk Conclusion 1. No evidence of stress induced EKG changes, although the EKG is non-diagnostic due to underlying pa cing. 2. Normal perfusion at stress. 3. Normal perfusion at rest with subdiaphragmatic attenuation artifact 4. Normal EF at > 55% 5. Low risk study Signed by : Jaxon Moseley, Electronically Approved : 12/28/2019 11:59:49
== END | disposition home or self-care (01) ==
LOC: ECHO 07:28
PROVIDERS: ATTEND Internal Medicine Cardiovascular Disease
DX: I08.1 Rheumatic disorders of both mitral and tricuspid valves (principal); I48.21 Permanent atrial fibrillation; E11.9 Type 2 diabetes mellitus without complications; Z95.0 Presence of cardiac pacemaker
CPT/HCPCS: 78452; 93017; 93306; A9500; J2785

== ENCOUNTER → 2020-04-03 | Outpatient (CLI) | payer BC ==
[~2020-04-03] MED LIST changes: -REGADENOSON 0.4 MG/5 ML DISP.SYRIN. IV ONE
--- NOTE | 2020-04-03 13:50 | RAD ---
INDICATION: Reason: Tingling; Paresthesia of skin; LT hand/lips numbness x 6-7 min;diabetic;HTN / Spl. Instructions: / History: COMPARISON: None. TECHNIQUE: Color, grayscale and doppler ultrasound images obtained of the carotid system bilaterally. Percent stenosis is estimated using criteria that correlates with NASCET methodology. FINDINGS: Peak systolic velocities are as follows in cm/s: Right Carotid System: CCA: 64 ICA: 64 ICA/CCA Ratio 1.0 Left Carotid System: CCA: 54 ICA: 75 ICA/CCA Ratio 1.3 Vertebral arteries are antegrade bilaterally. Multifocal plaque is seen including at the carotid bulb. IMPRESSION: * Multifocal plaque is seen without hemodynamically significant stenosis of the internal carotid arteries. Electronically signed by: Chaim Palmer MD (04/03/2020 1:47 PM) [id number]
== END | disposition home or self-care (01) ==
LOC: US 10:42
PROVIDERS: ATTEND Internal Medicine Cardiovascular Disease
DX: I65.23 Occlusion and stenosis of bilateral carotid arteries (principal); R20.2 Paresthesia of skin
CPT/HCPCS: 93880

== ENCOUNTER → 2021-03-19 | Outpatient (CLI) | payer BC ==
[~2021-03-19] MED LIST changes: -AMIO200T4 PO; +AMIO200T6 PO
--- NOTE | 2021-03-19 10:42 | CARD ---
MR#: [id number] Date of Study: 03/19/2021 Ordering Physician: CAROLINA CARVALHO, Referring Physician: CAROLINA CARVALHO, Tech: Awa Billingsley [facility] APPROVED REPORT EXAM: Two-dimensional and M-mode echocardiogram with Doppler and color Doppler. Other Information Quality : AverageHR: 84bpm INDICATION Atrial Fibrillation Surgery/Intervention Pacemaker: Date: 2017 RISK FACTORS Hyperlipidemia Diabetes 2D DIMENSIONS RVDd3.6 (2.9-3.5cm)Left Atrium(2D)4.0 (1.6-4.0cm) IVSd1.3 (0.7-1.1cm)Aortic Root(2D)3.2 (2.0-3.7cm) LVDd5.1 (3.9-5.9cm)LVOT Diameter2.1 (1.8-2.4cm) PWd0.9 (0.7-1.1cm)LVDs3.7 (2.5-4.0cm) FS (%) 28.3 %SV67.3 ml LVEF(%)54.4 (>50%) Aortic Valve AoV Peak Thomas.128.1cm/sAoV VTI22.7cm AO Peak GR.6.6mmHgLVOT Peak Thomas.77.6cm/s LVOT VTI 16.07cmAO Mean GR.4mmHg FRED (VMAX)1.81if9MGC (VTI)2.38cm2 Mitral Valve MV E Qftrgqvf22.9cm/sMV DECEL BJOR021eo MV A Rjdxjaty09.8cm/sMV E Mean Gr.1mmHg MV DBR22xqH/A Ratio1.8 MVA (PHT)4.36cm2 TDI E/Lateral E'11.1E/Medial E'13.4 Pulmonary Valve PV Peak Vnicyxtq341.7cm/sPV Peak Grad.4mmHg Tricuspid Valve TR P. Gkmjcnvk048ys/sRAP MFWNNJLO5sgBz TR Peak Gr.77rkAmHLOK90hzFo LEFT VENTRICLE The left ventricle is normal size. There is borderline to mild concentric left ventricular hypertroph y. The left ventricular systolic function is normal. The Ejection Fraction is 55%. Septal wall motion consistent with conduction abnormality. Tissue Doppler imaging reveals moderate left ventricular wilmer stolic dysfunction. RIGHT VENTRICLE The right ventricle is normal size. There is normal right ventricular wall thickness. The right ventr icular systolic function is normal. ATRIA The left atrium is mildly dilated. The right atrium size is normal. The interatrial septum is intact with no evidence for an atrial septal defect or patent foramen ovale as noted on 2-D or Doppler imagi ng. AORTIC VALVE The aortic valve is normal in structure and function. Doppler and Color Flow revealed trace aortic re gurgitation. There is no significant aortic valvular stenosis. Calculated aortic valve area is 2.6 cm 2 with maximum pressure gradient of 9 mmHg and mean pressure gradient of 5 mmHg. MITRAL VALVE The mitral valve is normal in structure and function. There is no evidence of mitral valve prolapse. There is no mitral valve stenosis. Doppler and Color-flow revealed mild mitral regurgitation. TRICUSPID VALVE The tricuspid valve is normal in structure and function. Doppler and Color Flow revealed mild to mode rate tricuspid regurgitation with an estimated PAP of 58 mmHg. There is no tricuspid valve stenosis. PULMONIC VALVE The pulmonic valve is not well visualized. Doppler and Color Flow revealed trace to mild pulmonic isabell vular regurgitation. GREAT VESSELS The aortic root is normal in size. The ascending aorta is normal in size. The IVC is dilated. PERICARDIAL EFFUSION There is no evidence of significant pericardial effusion. Critical Notification Critical Value: No <Conclusion> The left ventricular systolic function is normal. The Ejection Fraction is 55%. Pacer wire noted RA/RV. Mild mitral regurgitation. Mild to moderate tricuspid regurgitation with an estimated PAP of 58 mmHg. There is no evidence of significant pericardial effusion. Signed by : Carolina Carvalho, Electronically Approved : 03/19/2021 10:42:17
== END ==
LOC: ECHO 08:30
PROVIDERS: ATTEND Internal Medicine Cardiovascular Disease
DX: I08.8 Other rheumatic multiple valve diseases (principal); I48.21 Permanent atrial fibrillation
CPT/HCPCS: 93306

== ENCOUNTER 2021-04-10 08:27 | Outpatient (CLI) | payer BC ==
[2021-04-10] VITALS (12 sets, daily range): BP systolic 117–153; BP diastolic 52–79
[~2021-04-10] VITALS: Ht 182.9 cm; Wt 122.7 kg
[2021-04-10] MEDS ORDERED: NYST15PO2 TP (08:54)
[2021-04-10] MEDS ORDERED: GLIM2TAB7 PO (08:54)
[2021-04-10] MEDS ORDERED: METO50TA6 PO (08:54)
[2021-04-10 09:07] LABS: HEMATOCRIT 39.8 % (39.0-53.0); HEMOGLOBIN 13.6 g/dL (13.0-17.5); RED BLOOD COUNT 4.43 x10^6/uL (4.30-5.70); RED CELL DISTRIBUTION WIDTH 13.9 % (11.5-14.5); WHITE BLOOD COUNT 6.2 x10^3/uL (4.0-11.0)
[2021-04-10 09:18] LABS: PROTHROMBIN TIME PATIENT 13.4 SEC (11.7-14.0)
[2021-04-10 09:21] LABS: CALCIUM 8.8 mg/dL (8.5-10.1); CREATININE 1.2 mg/dL (0.7-1.3); GFR 58.9; POTASSIUM 4.4 mmol/L (3.5-5.1)
[2021-04-10] MEDS ORDERED: LIDOCAINE 1% Multi-Dose 20 ML VIAL. ONE (10:34)
[2021-04-10] MEDS ORDERED: IODIXANOL 320 MG/ML 100 ML VIAL. ONE (10:35)
[2021-04-10] MEDS ORDERED: fentaNYL PF VIAL 100 MCG/2 ML VIAL ONE (10:47)
[2021-04-10] MEDS ORDERED: MIDAZOLAM HCL/PF 2 MG/2 ML VIAL. ONE (10:48)
[2021-04-10] MEDS ORDERED: LIDOCAINE 1% Multi-Dose 20 ML VIAL. INJ ONE (11:30)
[2021-04-10] MEDS ORDERED: IODIXANOL 320 MG/ML 100 ML VIAL. IART ONE (11:30)
[2021-04-10] MEDS ORDERED: fentaNYL PF VIAL 100 MCG/2 ML VIAL IV ONE (11:30)
[2021-04-10] MEDS ORDERED: MIDAZOLAM HCL/PF 2 MG/2 ML VIAL. IV ONE (11:30)
--- NOTE | 2021-04-10 12:18 | PDOC ---
MODERATE SEDATION ASSESSMENT RISKS/ALTERNATIVES Risks/Alternatives Risks and alternatives of this type of sedation and procedure discussed with: RISK/ALTERNATIVES: Patient H & P ON CHART H & P H & P on chart and reviewed for co-morbid conditions and appropriate labs. H&P ON CHART: Yes STATUS PREG STATUS ASSESSED: N/A MEDS/ALLERGIES REVIEWED Meds/Allergies Reviewed Medications and Allergies including time and route of recently administered narcotics and sedatives. MEDS/ALLERGIES REVIEWED: Yes ASA RATING ASA RATING: II AIRWAY ASSESSMENT Airway Assessment Airway patency, oral function limitations, presence of caps, crowns, dentures, partials, and ability to extend neck assessed. AIRWAY ASSESSMENT: Yes MALLAMPATI SCORE MALLAMPATI SCORE: II PRE-SEDATION ASSESSMENT PRE-SEDATION ASSESSMENT: Yes CAROLINA GUZMÁN MD Apr 10, 2021 12:18
--- NOTE | 2021-04-10 12:27 | CARD ---
MR#: [id number] Date of Study: 04/10/2021 Ordering Physician: CAROLINA CARVALHO, Referring Physician: CAROLINA CARVALHO, Tech: RT Blake(R) APPROVED REPORT Technologist: Angélica Gonzales RT(R) Nurse: Luci Rousseau RN Procedure(s) performed: Right and left heart catheterization, selective coronary angiography and left ventriculography MODERATE SEDATION TIME: 39 MINUTES FLUORO TIME: 4.6 MIN DOSE: 59.1 GYCM2 CONTRAST: 101CC VISI INDICATION The indication(s) include : Refractory dyspnea on minor exertion. [facility] Clinical Frailty Scale [facility] Clinical Frailty Scale: Managing Well Heart Failure Heart Failure: Yes If Yes, Newly Diagnosed: No If Yes, HF Type: Diastolic If Yes, NYHA Class: Class II CASE TECHNIQUE IV conscious sedation was used throughout procedure with appropriate monitoring and was performed in the presence of a registered nurse who was an independent trained observer other than the physician p erforming the procedure. During this case, Fluoroscopy and low osmolar contrast were used for imaging . Specimen(s) Removed: No Estimated Blood loss: 20 cc's. PROCEDURE NARRATIVE After explaining the risk, benefits and alternative options, informed consent was obtained from patie nt. Patient was brought to the cardiac Desktop Analyst and his right groin was prepped and draped in the us ual fashion. 20 cc of 2% lidocaine was infiltrated into the skin and subcutaneous tissues for local anesthesia. Arterial and venous accesses were obtained in the right common femoral artery and vein r espectively and 6 and 8 Romanian sheaths inserted. A 7.5 Romanian Thida-Federico catheter was then advanced u nder fluoroscopic guidance and intracardiac pressures, oxygen saturations and cardiac output by Phu method measured. Subsequently, 6 Romanian JL4 and 6 Romanian JR4 catheters were used to perform selectiv e angiography of the left and right coronary arteries. 6 Romanian pigtail catheter was used to perform left ventriculography. Patient tolerated the procedure well. Hemostasis was achieved using Angio-S eal. There were no immediate complications. A. RIGHT HEART CATHETERIZATION 1. Intracardiac pressures: Mean right atrial pressure 4 mmHg, right ventricular pressure 28/2 mmHg, pulmonary artery pressure 34/14 mmHg, mean pulmonary artery pressure 23 mmHg and mean pulmonary capil julio wedge pressure 13 mmHg. Normal right and left-sided filling pressures without any pulmonary hyp ertension. 2. Oxygen saturations: Right atrium 71.8%, pulmonary artery 70%, femoral arterial sheath 98.7%. No evidence of intracardiac shunt. 3. Cardiac output by Phu method 5.4 L/min. B. LEFT HEART CATHETERIZATION 1. Hemodynamics: Left ventricular end-diastolic pressure 12 mmHg. No pullback gradient across the a ortic valve. 2. Left ventriculography: Normal left ventricle systolic function with ejection fraction estimated a t 65%. No significant mitral regurgitation seen. 3. Coronary angiography: a. The left main coronary artery arose from the left sinus of Valsalva, gave rise to the left anteri or descending and left circumflex arteries and did not show any significant stenosis. b. The left anterior descending artery showed 30% stenosis in the midsegment. c. The left circumflex artery did not show any significant stenosis. d. The right coronary artery was a dominant vessel arising from the right sinus of Valsalva that did not show any significant stenosis. Conclusion 1. No significant coronary artery disease 2. Normal right and left-sided filling pressures without any pulmonary hypertension 3. No evidence of intracardiac shunt 4. Normal left ventricular systolic function with ejection fraction estimated at 65% Recommendations Recommend regular exercise regimen and weight loss Signed by : Carolina Carvalho, Electronically Approved : 04/10/2021 12:27:08
[2021-04-10] MEDS ORDERED: 0.9 % SODIUM CHLORIDE 10 ML DISP.SYRIN. IV PRN (12:30)
[2021-04-10] MEDS ORDERED: IV 1/2 NORMAL SALINE 1,000 ML IV SCH (12:30)
[2021-04-10] MEDS ORDERED: NITROGLYCERIN SUBLINGUAL 0.4 MG BOTTLE OF 25. SL PRN (12:30)
--- NOTE | 2021-04-10 13:40 | NUR ---
shadowing noted on groin dressing. Dressing removed. V pad applied. Dressing reapplied. Groin site soft, no hematoma noted.
--- NOTE | 2021-04-10 13:41 | NUR ---
shadowing noted on groin dressing. Dressing removed and v pad applied. No bleeding noted. Groin site soft, no hematoma noted
--- NOTE | 2021-04-10 14:40 | NUR ---
Discharge Note: [facility] [place] Discharge instructions and discharge home medications reviewed with Patient and Daughter (Melodie); and a copy given. All questions have been answered and understanding verbalized. The following instructions and handouts were given: Groin Site care and Moderate sedation. Discontinued lines and drains: Left FA IV sited dc'd and tip intact. Patient discharged to home with daughter via personal vehicle. Addendum: 04/10/21 at 1447 by AVEL CASAREZ RN wrong pt.
--- NOTE | 2021-04-10 14:53 | NUR ---
discharge instructions reviewed with patient and family. Pt ambulated and tolerated PO. R groin site soft, no hematoma noted. PIV dc'd. Pt told to hold metformin for 48 hours. Pt home in private vehicle.
== END 2021-04-10 14:58 | disposition home or self-care (01) ==
LOC: CCL 08:27
PROVIDERS: ATTEND Internal Medicine Cardiovascular Disease
DX: R06.09 Other forms of dyspnea (principal); I25.10 Atherosclerotic heart disease of native coronary artery without angina pectoris; I11.0 Hypertensive heart disease with heart failure; I50.9 Heart failure, unspecified; E78.00 Pure hypercholesterolemia, unspecified; E11.40 Type 2 diabetes mellitus with diabetic neuropathy, unspecified; I48.91 Unspecified atrial fibrillation; N40.0 Benign prostatic hyperplasia without lower urinary tract symptoms; M19.90 Unspecified osteoarthritis, unspecified site; Z87.01 Personal history of pneumonia (recurrent); Z79.899 Other long term (current) drug therapy; Z95.0 Presence of cardiac pacemaker; Z98.890 Other specified postprocedural states
CPT/HCPCS: 36415; 80048; 85027; 85610; 93460; 99152; 99153; C1760; C1769; C1773; C1894; J1644; J2250; J3010; J3490; Q9967; G0269